=== PATIENT | female | born 1965 | race Caucasian/White ===

== ENCOUNTER 2017-11-19 14:45 | Inpatient (IN) ==
[2017-11-20] MEDS ORDERED: Dextrose 50% in Water 50 ML Vial IV.PUSH PRN (04:30)
[2017-11-20] MEDS ORDERED: Vancomycin Consult Pharmacy 1 EACH OTHER SCH (05:00)
[2017-11-20] MEDS: Piperacil/Tazo 4.5 GM Premix 4.5 GM/100 ML BAG IV.SIG SCH ×3 (05:14→17:12)
[2017-11-20 06:35] LABS: Baso % (Auto) 0.4 % (0.0-2.0); Eos # (Auto) 0.4 th/mm3 (0.0-0.4); Eos % (Auto) 3.4 % (0.0-4.0); Hemoglobin 11.6 gm/dL (11.6-15.3); Lymph # (Auto) 0.7 th/mm3 (1.0-4.8); Lymph % (Auto) 5.6 % (9.0-44.0); Mean Corpuscular Hemoglobin 31.3 pg (27.0-34.0); Mean Corpuscular Volume 89.4 fL (80.0-100.0); Mean Platelet Volume 7.6 fL (7.0-11.0); Mono # (Auto) 0.7 th/mm3 (0.0-0.9); Mono % (Auto) 5.7 % (0.0-8.0); Neut # (Auto) 10.4 th/mm3 (1.8-7.7); Neut % (Auto) 84.9 % (16.0-70.0); Platelet Count 311 th/mm3 (150-450); Red Blood Count 3.69 mil/mm3 (4.00-5.30); Red Cell Distribution Width 11.3 % (11.6-17.2); White Blood Count 12.2 th/mm3 (4.0-11.0)
[2017-11-20 06:41] LABS: Chloride 97 meq/L (98-107); Sodium 133 meq/L (136-145)
[2017-11-20 06:43] LABS: Calcium 8.6 mg/dL (8.5-10.1)
[2017-11-20 06:44] LABS: Anion Gap 11 meq/L (5-15); Blood Urea Nitrogen 10 mg/dL (7-18); Glucose,Random 253 mg/dL (74-106)
[2017-11-20 06:47] LABS: Glomerular Filtration Rate Greater Than 89 mL/min (>89)
[2017-11-20] MEDS ORDERED: Vancomycin Inj 1 GM/200 ML PIGGYBACK IV.SIG ONE (07:00)
[2017-11-20] MEDS: Insulin NovoLOG Aspart Correctional Sugar Inj SQ SCH ×4 (08:10→21:09)
--- NOTE | 2017-11-20 11:37 | P.HP ---
History of Present Illness Primary Care Physician: UNKNOWN History of Present Illness: 52-year-old female with known history of hypertension, hyperlipidemia, diabetes who recently underwent same-day surgery for cholecystectomy at [facility] on November 12, 2016. Ever since discharge the patient states that he has been experiencing shortness of breath and difficulty breathing progressively got worse where she could barely walk without getting significantly short of breath. Patient denies any fever, chills. She has had cough which has been nonproductive. Patient denies any significant abdominal pain, nausea, vomiting , chest pain, diarrhea, constipation, dark colored stools. Patient had workup done emergency department and found to have criteria for sepsis with leukocytosis, tachycardia, CT indicating right lower lung consolidations. - Diagnosis (1) Sepsis (2) Postoperative pneumonia (3) Diabetes (4) Hypertension Inpatient Certification: I certify that the inpatient services were ordered in accordance with Medicare regulations governing the order. This includes certification that hospital inpatient services are reasonable and necessary and in the case of services not specified as inpatient-only under 42 CFR 419.22(n), that they are appropriately provided as inpatient services in accordance to with the 2-midnight benchmark under 43 CFR 412.3(e) Estimated Total Length of Stay (Days): 2 Plans for Post Hospital Care: Home Review of Systems Respiratory: Reports shortness of breath, Reports shortness of breath with activity PMFSH - History History Provided By: Patient - Medical History Medical History: Medical History (Last Updated 11/20/17 @ 11:07 by FRANCISCA Wells) Hyperlipemia Diabetes Hypertension - Surgical History Surgical History: Surgical History (Last Reviewed 11/20/17 @ 11:30 by FRANCISCA Wells) Hx of breast augmentation Hx of cholecystectomy - Family History Family History: Family History (Last Updated 11/20/17 @ 11:09 by FRANCISCA Wells) Mother Family history of diabetes mellitus Family history of hypertension Aunt Family history of diabetes mellitus Brother Family history of diabetes mellitus Family history of hypertension - Tobacco History Second Hand Smoke Exposure: No Tobacco Use In Past 30 Days: No Smoking Status: Former smoker Tobacco Type: Cigarettes - Alcohol History How Often Do You Have a Drink Containing Alcohol: Never - Substance Use History Substance History: No History of Abuse Medications and Allergies Active Medications: Active Medications Dextrose (D50w Vial) 50 ml IV.PUSH UNSCH PRN PRN Reason: PER HYPOGLYCEMIA PROTOCOL Glucagon (Glucagon Inj) 1 mg OTHER PRN PRN PRN Reason: for Hypoglycemia Protocol Pharmacy Profile Note (Vancomycin Consult Pharmacy) 0 mls @ 0 mls/hr OTHER UNSCH CLAUDINE Piperacillin/Tazobactam/Dextrose (Zosyn 4.5 Gm Premix) 4.5 gm in 100 mls @ 200 mls/hr IV.SIG Q6H CLAUDINE Last Admin: 11/20/17 10:45 Dose: 100 mls/hr Vancomycin HCl 1,250 mg/ (Sodium Chloride) 262.5 mls @ 250 mls/hr IV.SIG Q8H CLAUDINE Insulin Aspart (Novolog Insulin Suppl Scale Inj) 0 unit SQ ACHS CLAUDINE; Protocol Last Admin: 11/20/17 08:10 Dose: 5 unit Levofloxacin (Levaquin) 750 mg PO DAILY [facility] Miscellaneous Information ([facility] Ordered Lab Info) 1 each OTHER ONCE ONE Stop: 11/21/17 13:46 Allergies Allergy/AdvReac Type Severity Reaction Status Date / Time No Known Allergies Allergy Verified 11/19/17 15:12 Home Medications Medication Instructions Recorded Confirmed Type lisinopril 10 mg PO DAILY 11/19/17 11/19/17 History metformin 500 mg PO BID 11/19/17 11/19/17 History Exam Vital signs: Vital Signs 11/20/17 05:34 11/20/17 08:00 Temperature 97.8 F 98.5 F Pulse Rate 102 H 99 H Respiratory Rate 20 17 Blood Pressure 130/78 127/79 Pulse Oximetry 96 94 L Intake & Output 11/19/17 11/20/17 11/20/17 18:59 06:59 18:59 Intake Total 580 / 580 Balance 580 / 580 Weight 81.3 kg Intake: IV 100 / 100 Zosyn 4.5 GM Premix 4.5 gm In 100 / 100 100 ml @ 200 mls/hr IV.SIG Q6H CLAUDINE Rx#:[id number] Oral 480 / 480 Other: # Voids 1 Narrative: GENERAL: Well-developed, well-nourished, in no acute distress. alert and orientated HEENT: Head is normocephalic without any lesions or masses noted. Facial features are symmetric. Eyes: Pupils equal round reactive to light. Extraocular muscles are intact. Conjunctivae were clear. Oropharyngeal: Pharynx without any erythema edema. Tongue is midline without deviation. Buccal mucosa is moist without any masses or lesions NECK: Supple without any masses. Trachea midline no deviation. No JVD, no bruits are appreciated CARDIAC: Regular rhythm, regular rate. S1/S2 are heard. No murmurs gallops or rubs. LUNGS: Clear to auscultation bilaterally. No wheeze, rhonchi or rales. No use of accessory muscles on inspiration or expiration. ABDOMEN: Soft, nontender. Nondistended. Bowel sounds heard in all 4 quadrants. No organomegaly or masses. Negative rebound, negative guarding EXTREMITIES: No edema, pulses are equal bilaterally. No cyanosis or clubbing NEUROLOGY: Mood and affect appear appropriate. Cranial nerves II through XII grossly intact. Muscle strength 5/5 in upper and lower extremities bilaterally. Deep tendon reflexes are 2+ in upper and lower extremities bilaterally. Results - Labs CBC & Chem 7: 11/20/17 06:25 11/20/17 06:25 Labs: Laboratory Results - last 24 hr 11/20/17 11/20/17 11/20/17 06:25 06:25 07:57 CBC w Diff Auto diff final WBC 12.2 H RBC 3.69 L Hgb 11.6 Hct 33.0 L MCV 89.4 MCH 31.3 MCHC 35.0 RDW 11.3 L Plt Count 311 MPV 7.6 Neut % (Auto) 84.9 H Lymph % (Auto) 5.6 L [place] % (Auto) 5.7 Eos % (Auto) 3.4 Baso % (Auto) 0.4 Neut # (Auto) 10.4 H Lymph # (Auto) 0.7 L [place] # (Auto) 0.7 Eos # (Auto) 0.4 Baso # (Auto) 0.0 WBC Differential . Sodium 133 L Potassium 4.0 Chloride 97 L Carbon Dioxide 25.0 Anion Gap 11 BUN 10 Creatinine 0.47 L Estimated GFR Greater than 89 POC Glucose 257 H Random Glucose 253 H Calcium 8.6 11/20/17 11:22 CBC w Diff WBC RBC Hgb Hct MCV MCH MCHC RDW Plt Count MPV Neut % (Auto) Lymph % (Auto) [place] % (Auto) Eos % (Auto) Baso % (Auto) Neut # (Auto) Lymph # (Auto) [place] # (Auto) Eos # (Auto) Baso # (Auto) WBC Differential Sodium Potassium Chloride Carbon Dioxide Anion Gap BUN Creatinine Estimated GFR POC Glucose 248 H Random Glucose Calcium Caprini VTE Risk Assessment Caprini VTE Risk Assessment: Moderate/High Risk (score >= 2) Caprini Risk Assessment Model: Point Value = 1 Point Value = 2 Point Value = 3 Point Value = 5 Age 41-60 Minor surgery BMI > 25 kg/m2 Swollen legs Varicose veins or History of unexplained or recurrent spontaneous Oral contraceptives or hormone replacement Sepsis (< 1 month) Serious lung disease, including pneumonia (< 1 month) Abnormal pulmonary function Acute myocardial infarction Congestive heart failure (< 1 month) History of inflammatory bowel disease Medical patient at bed rest Age 61-74 Arthroscopic surgery Major open surgery (> 45 min) Laparoscopic surgery (> 45 min) Malignancy Confined to bed (> 72 hours) Immobilizing plaster cast Central venous access Age >= 75 History of VTE Family history of VTE Factor V Leiden Prothrombin [id number] Lupus anticoagulant Anticardiolipin antibodies Elevated serum homocysteine Heparin-induced thrombocytopenia Other congenital or acquired thrombophilia Stroke (< 1 month) Elective arthroplasty Hip, pelvis, or leg fracture Acute spinal cord injury (< 1 month) Prophylaxis Regimen: Total Risk Factor Score Risk Level Prophylaxis Regimen 0-1 Low Early ambulation 2 Moderate Order ONE of the following: *Sequential Compression Device (SCD) *Heparin 5000 units SQ BID 3-4 Higher Order ONE of the following medications: *Heparin 5000 units SQ TID *Enoxaparin/Lovenox 40 mg SQ daily (WT < 150 kg, CrCl > 30 mL/min) *Enoxaparin/Lovenox 30 mg SQ daily (WT < 150 kg, CrCl > 10-29 mL/min) *Enoxaparin/Lovenox 30 mg SQ BID (WT < 150 kg, CrCl > 30 mL/min) AND/OR *Sequential Compression Device (SCD) 5 or more Highest Order ONE of the following medications: *Heparin 5000 units SQ TID (Preferred with Epidurals) *Enoxaparin/Lovenox 40 mg SQ daily (WT < 150 kg, CrCl > 30 mL/min) *Enoxaparin/Lovenox 30 mg SQ daily (WT < 150 kg, CrCl > 10-29 mL/min) *Enoxaparin/Lovenox 30 mg SQ BID (WT < 150 kg, CrCl > 30 mL/min) AND *Sequential Compression Device (SCD) Assessment and Plan - Assessment (1) Sepsis Code(s): A41.9 - Sepsis, unspecified organism Status: Acute Plan: -Patient met criteria on admission with leukocytosis, sinus tachycardia, right lower lung consolidation by CT -Patient has been started on empirical antibiotics include vancomycin, Zosyn, Levaquin -Blood cultures are pending -Obtain sputum culture -Continue to follow CBC, WBC has already improved (2) Postoperative pneumonia Code(s): J95.89 - Other postprocedural complications and disorders of respiratory system, not elsewhere classified; J18.9 - Pneumonia, unspecified organism Status: Acute Plan: -Patient is being treated with community-acquired pneumonia antibiotics as above -CT scan does indicate significant atelectasis in bilateral lower lung colon, likely secondary to postoperative hypoventilation, possibly secondary to pain -Wean off O2 to maintain O2 sats greater than 92% -Emphasized the need for incentive spirometry -Duo nebs as needed (3) Diabetes Code(s): E11.9 - Type 2 diabetes mellitus without complications Status: Chronic Plan: -Accu-Cheks with sliding scale insulin (4) Hypertension Code(s): I10 - Essential (primary) hypertension Status: Chronic Plan: -Home medications have been continued - Plan DVT prevention -Sequential compression devices
[2017-11-20] MEDS: Vancomycin Inj 1,250 MG in Sodium Chlor 0.9% Inj 250 ML IV.SIG SCH (14:15)
[2017-11-20] MEDS: levoFLOXacin 750 MG Tablet PO SCH (15:52)
[2017-11-21] MEDS: Vancomycin Inj 1,250 MG in Sodium Chlor 0.9% Inj 250 ML IV.SIG SCH ×3 (00:28→17:37)
[2017-11-21] MEDS: Piperacil/Tazo 4.5 GM Premix 4.5 GM/100 ML BAG IV.SIG SCH ×5 (00:28→23:08)
[2017-11-21 07:42] LABS: Baso # (Auto) 0.1 th/mm3 (0.0-0.2); Baso % (Auto) 0.7 % (0.0-2.0); Eos # (Auto) 0.1 th/mm3 (0.0-0.4); Eos % (Auto) 0.8 % (0.0-4.0); Hematocrit 36.9 % (35.0-46.0); Hemoglobin 12.5 gm/dL (11.6-15.3); Lymph # (Auto) 0.4 th/mm3 (1.0-4.8); Lymph % (Auto) 2.6 % (9.0-44.0); Mean Corpuscular HGB Conc 33.8 % (32.0-36.0); Mean Corpuscular Hemoglobin 31.1 pg (27.0-34.0); Mean Corpuscular Volume 91.8 fL (80.0-100.0); Mean Platelet Volume 8.1 fL (7.0-11.0); Mono # (Auto) 0.6 th/mm3 (0.0-0.9); Mono % (Auto) 4.3 % (0.0-8.0); Neut # (Auto) 13.7 th/mm3 (1.8-7.7); Neut % (Auto) 91.6 % (16.0-70.0); Platelet Count 396 th/mm3 (150-450); Red Blood Count 4.02 mil/mm3 (4.00-5.30); Red Cell Distribution Width 11.2 % (11.6-17.2); White Blood Count 14.9 th/mm3 (4.0-11.0)
[2017-11-21 07:59] LABS: ABG Base Excess -4.7 mmol/L (-2-2); ABG PCO2 31 mmHg (38-42); ABG PO2 54 mmHg (61-120)
--- NOTE | 2017-11-21 08:05 | XR ---
EXAM DATE: 11/21/2017 7:56 AM EDT AGE/SEX: 52 years / Female INDICATIONS: Extreme shortness of breath. CLINICAL DATA: This is the patient's initial encounter. Patient reports that signs and symptoms have been present for 1 day and indicates a pain score of 0/10. MEDICAL/SURGICAL HISTORY: Diabetes mellitus type II. Hypercholesterolemia. Hypertension. For vira smoker. Cholecystectomy. Breast augmentation. COMPARISON: [facility], [facility] PULMONARY W CONTRAST W 3D, 11/19/2017. . FINDINGS: A single AP view of the chest demonstrates almost complete opacification right hemithorax. Minimal le ft basilar density. Slight shift of the mediastinum to the left. Only small portion of the right uppe r lobe is aerated. The cardiomediastinal contours are unremarkable. Osseous structures are intact. CONCLUSION: 1. Almost complete opacification right hemithorax likely large pleural effusion/atelectasis. 2. Minimal density left lung base. Electronically signed by: Reza Lopez MD 11/21/2017 8:04 AM EDT
[2017-11-21 08:11] LABS: Chloride 94 meq/L (98-107); Potassium 3.6 meq/L (3.5-5.1); Sodium 132 meq/L (136-145)
[2017-11-21 08:17] LABS: Calcium 8.7 mg/dL (8.5-10.1)
[2017-11-21 08:18] LABS: Albumin 2.2 g/dL (3.4-5.0); Anion Gap 13 meq/L (5-15); Blood Urea Nitrogen 13 mg/dL (7-18); Carbon Dioxide 25.5 meq/L (21.0-32.0); Glucose,Random 275 mg/dL (74-106)
[2017-11-21 08:21] LABS: Alanine Aminotransferase 25 U/L (10-53); Aspartate Aminotransferase 19 U/L (15-37); Glomerular Filtration Rate 86 mL/min (>89)
[2017-11-21 08:22] LABS: Alkaline Phosphatase 199 U/L (45-117); Total Protein 7.2 g/dL (6.4-8.2)
[2017-11-21] MEDS ORDERED: Bisacodyl 10 MG Supp RECTAL PRN (08:41)
--- NOTE | 2017-11-21 09:47 | CT ---
EXAM DATE: 11/21/2017 9:42 AM EDT AGE/SEX: 52 years / Female INDICATIONS: Status of pleural effusion. Short of breath. Patient breathes better in upright positio n. CLINICAL DATA: This is the patient's subsequent encounter. Patient reports that signs and symptoms h ave been present for 3 days and indicates a pain score of 0/10. MEDICAL/SURGICAL HISTORY: Hypertension. Diabetes. Cholecystectomy. RADIATION DOSE: 19.13 CTDI (mGy) COMPARISON: [facility], [facility]A PULMONARY W CONTRAST W 3D, 11/19/2017. . TECHNIQUE: Multiple contiguous axial images were obtained through the chest without contrast. Image s were obtained in suspended respiration using multiple row detector helical technique. Using automa raffy exposure control and adjustment of the mA and/or kV according to patient size, radiation dose was kept as low as reasonably achievable to obtain optimal diagnostic quality images. DICOM format imag e data is available electronically for review and comparison. FINDINGS: Lungs: Large right pleural effusion with consolidative changes of the right middle lobe and right lo wer lobe. Small left pleural effusion and left basilar consolidation Mediastinum: There is good visualization of the great vessels of the middle mediastinum. No evidenc e of mediastinal or hilar adenopathy/mass. Pleurae: No evidence of focal thickening or pleural effusion. Axillae: Unremarkable. Bony Structures: Unremarkable. Miscellaneous: The examination was extended to include the upper abdomen, and both adrenal glands ar e normal in size and configuration. Minimal ascites adjacent to the liver. CONCLUSION: 1. Large right and small left pleural effusion. 2. Extensive consolidation throughout the right lung likely atelectasis with similar changes in the left lung base. Electronically signed by: Reza Lopez MD 11/21/2017 9:46 AM EDT
[2017-11-21] MEDS: Insulin NovoLOG Aspart Correctional Sugar Inj SQ SCH ×4 (10:01→21:42)
[2017-11-21] MEDS: levoFLOXacin 750 MG Tablet PO SCH (10:01)
[2017-11-21] MEDS: Senna/Docusate Sodium 8.6/50 MG Tablet PO SCH ×2 (10:01→21:41)
[2017-11-21] MEDS: Famotidine 20 MG Tablet PO SCH ×2 (10:02→21:41)
[2017-11-21] MEDS ORDERED: hydrALAZINE HCl Inj 20 MG/ML Vial IV.PUSH PRN (10:36)
[2017-11-21] MEDS: Lisinopril 10 MG Tablet PO SCH (11:14)
--- NOTE | 2017-11-21 12:52 | P.CONCC ---
History of Present Illness Consult date: 11/21/17 Requesting Physician: Yaritza Paiz Reason for Consult: Critical care management Primary Care Provider: UNKNOWN Chief Complaint: Shortness of breath and dyspnea History of Present Illness: 52-year-old female with known history of hypertension, hyperlipidemia, diabetes who recently underwent same-day surgery for cholecystectomy at [facility] on November 12, 2016. Number since then patient has been experiencing progressively worsening shortness of breath where it was so severe that she went to the [place] ER. Patient was found to have sepsis by criteria, CT scan did show right lower lung consolidations, effusions, atelectasis bilaterally. Patient was admitted to the medical service and was placed on antibiotics with vancomycin and Zosyn for postoperative pneumonia. There is also indicated that patient was started on incentive spirometry due to postsurgical atelectasis. Patient was doing well and then when she woke up this morning she had severe shortness of breath where he required her to have increased O2 supplementation with 2 L nasal cannula repeat x-ray was performed which did indicate complete whiteout of the right lung. Stat CT was performed which does indicate very large pleural effusion. Patient was moved to the ICU and placed on BiPAP for respiratory support. Because of the above reasons critical care was consulted for medical management of the patient in the ICU. Review of Systems All other systems reviewed negative except as stated in HPI Respiratory: Reports pain on inspiration, Reports pain with cough, Reports shortness of breath, Reports shortness of breath with activity PMFSH - History History Provided By: Patient - Medical History Medical History: Medical History (Last Reviewed 11/21/17 @ 12:47 by FRANCISCA Wells) Hyperlipemia Diabetes Hypertension - Surgical History Surgical History: Surgical History (Last Reviewed 11/21/17 @ 12:47 by FRANCISCA Wells) Hx of breast augmentation Hx of cholecystectomy - Family History Family History: Family History (Last Reviewed 11/21/17 @ 12:47 by FRANCISCA Wells) Mother Family history of diabetes mellitus Family history of hypertension Aunt Family history of diabetes mellitus Brother Family history of diabetes mellitus Family history of hypertension - Tobacco History Second Hand Smoke Exposure: No Tobacco Use In Past 30 Days: No Smoking Status: Former smoker Tobacco Type: Cigarettes - Alcohol History How Often Do You Have a Drink Containing Alcohol: Never - Substance Use History Substance History: No History of Abuse Medications and Allergies Allergies Allergy/AdvReac Type Severity Reaction Status Date / Time No Known Allergies Allergy Verified 11/19/17 15:12 Home Medications Medication Instructions Recorded Confirmed Type lisinopril 10 mg PO DAILY 11/19/17 11/21/17 History metformin 500 mg PO BID 11/19/17 11/21/17 History Active Medications: Active Medications Al Hydroxide/Mg Hydroxide (Milk Of Magnalisia Liq) 30 ml PO Q12H PRN PRN Reason: Mild Constipation Albuterol (Duoneb Neb (Prn)) 1 ampul NEB Q2HR NEB PRN PRN Reason: SHORTNESS OF BREATH/WHEEZING Last Admin: 11/21/17 08:20 Dose: 1 ampul Albuterol (Duoneb Neb (Pérez)) 1 ampul NEB Q6HR WHILE AWAKE NEB PÉREZ Last Admin: 11/21/17 08:18 Dose: 1 ampul Bisacodyl (Dulcolax Supp) 10 mg RECTAL DAILY PRN PRN Reason: SEVERE CONSITIPATION Chlorhexidine Gluconate (Chlorhexidine 2% Cloth) 3 pack TOPICAL DAILY@0400 PÉREZ Stop: 11/27/17 03:59 Chlorhexidine Gluconate (Chlorhexidine 2% Cloth) 3 pack TOPICAL DAILY@0400 PRN PRN Reason: Extra cloth needed Stop: 11/27/17 03:59 Dextrose (D50w Vial) 50 ml IV.PUSH UNSCH PRN PRN Reason: PER HYPOGLYCEMIA PROTOCOL Famotidine (Pepcid) 20 mg PO BID PÉREZ Last Admin: 11/21/17 10:02 Dose: 20 mg Glucagon (Glucagon Inj) 1 mg OTHER PRN PRN PRN Reason: for Hypoglycemia Protocol Hydralazine HCl (Apresoline Inj) 20 mg IV.PUSH Q6HR PRN PRN Reason: SBP>160, DBP>90 Last Admin: 11/21/17 12:10 Dose: 20 mg Pharmacy Profile Note (Vancomycin Consult Pharmacy) 0 mls @ 0 mls/hr OTHER UNSCH PÉREZ Piperacillin/Tazobactam/Dextrose (Zosyn 4.5 Gm Premix) 4.5 gm in 100 mls @ 200 mls/hr IV.SIG Q6H PÉREZ Last Infusion: 11/21/17 12:09 Dose: Infused Vancomycin HCl 1,250 mg/ (Sodium Chloride) 262.5 mls @ 250 mls/hr IV.SIG Q8H PÉREZ Last Infusion: 11/21/17 06:47 Dose: Infused Insulin Aspart (Novolog Insulin Suppl Scale Inj) 0 unit SQ ACHS [facility]; Protocol Last Admin: 11/21/17 12:15 Dose: 7 unit Lactulose (Lactulose Liq) 30 ml PO DAILY PRN PRN Reason: SEVERE CONSITIPATION Levofloxacin (Levaquin) 750 mg PO DAILY [facility] Last Admin: 11/21/17 10:01 Dose: 750 mg Lisinopril (Prinivil) 10 mg PO DAILY [facility] Last Admin: 11/21/17 11:14 Dose: 10 mg Lorazepam (Ativan Inj) 1 mg IV.PUSH Q4H PRN PRN Reason: ANXIETY AND/OR AGITATION Last Admin: 11/21/17 08:54 Dose: 1 mg Miscellaneous Information ([facility] Ordered Lab Info) 1 each OTHER ONCE ONE Stop: 11/21/17 13:46 Senna/Docusate Sodium (Lalitha-Colace) 1 tab PO BID [facility] Last Admin: 11/21/17 10:01 Dose: 1 tab Sennosides (Senokot) 17.2 mg PO Q12H PRN PRN Reason: Moderate Constipation Physical Exam Vital signs: Vital Signs 11/20/17 15:18 11/20/17 16:00 11/20/17 19:50 Temperature 97.2 F L Pulse Rate 100 H 98 H 109 H Respiratory Rate 30 H 17 16 Blood Pressure 125/77 Pulse Oximetry 94 L 95 11/20/17 20:00 11/21/17 00:00 11/21/17 04:00 Temperature 97.9 F 98.5 F Pulse Rate 100 H 94 H Respiratory Rate 14 Blood Pressure 114/75 136/84 Pulse Oximetry 94 L 92 L 94 L 11/21/17 06:20 11/21/17 07:40 11/21/17 08:09 Temperature 96.2 F L 98.6 F Pulse Rate 104 H 104 H 110 H Respiratory Rate 24 20 Blood Pressure 156/59 H 169/93 H Pulse Oximetry 88 L 92 L 92 L 11/21/17 08:22 11/21/17 09:00 11/21/17 10:01 Temperature Pulse Rate 117 H 120 H 122 H Respiratory Rate 40 H 49 H 51 H Blood Pressure 174/94 H 165/100 H Pulse Oximetry 95 95 94 L 11/21/17 11:01 11/21/17 11:05 11/21/17 12:01 Temperature 98.8 F Pulse Rate 114 H 114 H Respiratory Rate 31 H 35 H Blood Pressure 166/101 H 156/99 H Pulse Oximetry 94 L 95 95 Intake & Output 11/20/17 11/21/17 11/21/17 18:59 06:59 18:59 Intake Total 820 / 820 3650.0 / 3650.0 820 / 820 Output Total 300 / 300 1999 / 1999 Balance 820 / 820 3350.0 / 3350.0 -1180 / -1180 Weight 81.3 kg Intake: IV 100 / 100 3650.0 / 3650.0 100 / 100 Zosyn 4.5 GM Premix 4.5 gm In 100 / 100 300 / 300 100 / 100 100 ml @ 200 mls/hr IV.SIG Q6H PÉREZ Rx#:[id number] Vancomycin Inj 1,250 MG In NS 3150.0 / 3150.0 Inj 250 ML @ 250 mls/hr IV.SIG Q8H PÉREZ Rx#:[id number] Oral 720 / 720 720 / 720 Output: Urine 300 / 300 1999 Other: # Voids 6 2 Date of Last Bowel Movement 11/19/17 # Bowel Movements 0 Narrative: GENERAL: Well-developed, well-nourished, in no acute distress. alert and orientated HEENT: Head is normocephalic without any lesions or masses noted. Facial features are symmetric. Eyes: Pupils equal round reactive to light. Extraocular muscles are intact. Conjunctivae were clear. Oropharyngeal: Pharynx without any erythema edema. Tongue is midline without deviation. Buccal mucosa is moist without any masses or lesions NECK: Supple without any masses. Trachea midline no deviation. No JVD, no bruits are appreciated CARDIAC: Regular rhythm, regular rate. S1/S2 are heard. No murmurs gallops or rubs. LUNGS: Patient with absent lung sounds noted on the right side. Patient is tachypneic with shallow breathing. No wheeze, rhonchi or rales. No use of accessory muscles on inspiration or expiration. ABDOMEN: Soft, nontender. Nondistended. Bowel sounds heard in all 4 quadrants. No organomegaly or masses. Negative rebound, negative guarding EXTREMITIES: No edema, pulses are equal bilaterally. No cyanosis or clubbing NEUROLOGY: Mood and affect appear appropriate. Cranial nerves II through XII grossly intact. Muscle strength 5/5 in upper and lower extremities bilaterally. Deep tendon reflexes are 2+ in upper and lower extremities bilaterally. Septic Shock Reassessment Septic shock perfusion: reassessment completed Assessment and Plan - Assessment and Plan Plan: NEUROLOGY Anxiety -Ativan as needed for anxiety agitation -Continue monitor neurological status PULMONOLOGY Acute hypoxic respiratory failure Large right-sided pleural effusion, postoperative Postoperative pneumonia Postoperative atelectasis -Continue O2 sat mentation maintain O2 sats greater than 92% -ABG indicated pH 7.41, PCO2 31, PO2 54, bicarb 15.7, O2 saturation 86% -Patient started on BiPAP 15/5/50 percent, wean FiO2 to maintain O2 sats greater than 92% -Stat CT was performed of the chest which does show a very large right pleural effusion -Stat ultrasound-guided thoracentesis has been requested, awaiting procedure, requesting pigtail catheter to be placed -Patient respiratory status continues to worsen prior to thoracentesis, pt may need to be intubated -Send pleural fluid for analysis -Duo nebs with easy Pap have been requested -Incentive spirometry -Tractor Mechanic consulted for continued management CARDIOLOGY Hypertension -Home medications have been continued -Continue monitor blood pressure to keep map greater than 65 -Echocardiogram has been requested GASTROENTEROLOGY Hyperbilirubinemia -Diabetic diet -Pepcid for GI protection -Patient still with elevated bilirubin status post cholecystectomy -Continue monitor liver enzymes RENAL -Continue monitor renal function -Monitor electrolytes and replete as needed INFECTIOUS DISEASE Postoperative pneumonia Leukocytosis Lactic acidosis -Patient is on vancomycin and Zosyn -Blood cultures are negative for 2 days -Awaiting sputum culture -Send pleural fluid for cultures -Urinalysis did not indicate any signs of infection HEMATOLOGY -Continue monitor hemoglobin and transfuse if hemoglobin below 8.0 ENDOCRINOLOGY Diabetes -Diabetic diet -Accu-Cheks with sliding scale insulin PROPHYLAXIS DVT prevention: Sequential compression devices GI protection: Patient is on Pepcid twice daily LINES CODE STATUS Full code Critical care management 60 minutes excluding procedures Discussed Condition With: Addendum: Patient seen and examined. Discussed findings, assessment and plan with [place]. Agree with above note. Patient breathing better following thoracentesis and drainage of approx 1000cc pleural fluid. Pulm eval noted. Will continue to follow.
[2017-11-21] MEDS ORDERED: Pharmacy Ordered Lab Info OTHER ONE (13:45)
[2017-11-21 13:50] LABS: Activated Partial Thrombo Time 24.1 sec (24.3-30.1); INR 1.2 Ratio
--- NOTE | 2017-11-21 15:24 | MB ---
cc: Rebeca Stack MD DATE: 11/21/2017 HISTORY OF PRESENT ILLNESS: Ms. Gandhi is a 52-year-old white female with a history of diabetes, not insulin-dependent, who underwent a cholecystectomy about a week ago. After discharge home, she became progressively more short of breath, presented to the ER in [place] and was transferred here because her chest x-ray revealed near total whiteout of the right lung. On presentation here, she had a CT scan which revealed a very large pleural effusion in the right as well as some perihepatic ascitic fluid. She has had a chest tube placed in the right hemithorax with a serosanguineous fluid drained, about 2 liters total. She is feeling much better. She was a former smoker of 1/2 to 1 pack per day for about 30 years. She quit smoking 6 months ago. Apparently drank wine heavily for many years as well, but has had no alcohol in the last 6 months. She has had shortness of breath, but no pain. No purulent sputum or hemoptysis. No swelling in her legs. PAST MEDICAL HISTORY: Hypertension, diabetes. No prior history of pneumonia or known lung disease. Denies ever having had pneumonia. No history of thromboembolic disease. ALLERGIES: NONE. MEDICATIONS PRIOR TO ADMISSION: Metformin and lisinopril. MEDICATIONS HERE IN THE HOSPITAL: Reviewed and recorded. She has been placed on Zosyn and vancomycin for possible postoperative pneumonia. SOCIAL HISTORY: She is and living with her . Her mother lives with them as well. Smoking and alcohol as noted above. No illicit drug use. They do have a dog at home. REVIEW OF SYSTEMS: She has had no nausea or vomiting. She has had loose bowel movements since the surgery. Denies fever or sweats. PHYSICAL EXAMINATION: GENERAL: She is awake, alert, comfortable at rest. VITAL SIGNS: Temperature is 98.8, pulse is 120 and regular, respirations are 22, blood pressure is 150/80, O2 saturation is 95% on a Ventimask. HEENT: Sclerae are anicteric. NECK: Neck veins are flat. CHEST: Reveals some scattered congestion in the right. No wheezes. HEART: Regular rhythm. No harsh murmur. ABDOMEN: Soft. Wounds appear to be healing nicely. EXTREMITIES: No peripheral edema. No calf tenderness. IMAGING STUDIES: Chest x-ray after chest tube drainage still shows an elevation of the right hemidiaphragm. Question is whether or not she has any residual subpulmonic effusion. DISCUSSION: Ms. Gandhi presents status post cholecystectomy with a large right pleural effusion. It looks serosanguineous. Those results are pending. There may be pneumonia underlying this, but I am concerned about that elevation in the right hemidiaphragm despite pleural fluid drainage and I suggest we repeat the scan of her chest and abdomen with particular interest in that right upper quadrant. Continue antibiotics, nebulized aerosol treatments in light of the smoking history. Further diagnostic and/or therapeutic intervention will depend on her ongoing clinical course. R. MD SARTHAK Gonzalez/CASTRO , 02:54 PM , 03:22 PM
[2017-11-21 16:51] LABS: Lymphocytes,Pleural Fluid 8 %; Mesothelial,Pleural Fluid 2 %; Neutrophils,Pleural Fluid 90 %; RBC,Pleural Fluid 5260 /mm3 (0-0)
[2017-11-21] MEDS: Sod Chloride 0.9% Inj 1,000 ML IV.CONT SCH (17:37)
--- NOTE | 2017-11-21 19:40 | ECHRPT ---
Indication: Shortness of Breath CONCLUSIONS Trace mitral valve regurgitation. There is mild tricuspid valve regurgitation. The estimated pulmonary arterial pressure is 45 mmHg. The left ventricular systolic function is hyperdynamic with an estimated ejection fraction in the ra nge of 65- 70%. Normal left ventricular size. Wall thickness is measured at the upper limits of normal. No regional wall motion abnormalities are present. BP: / HR: 111 Rhythm: MEASUREMENTS (Male / Female) Normal Values Technical Quality:Fair 2D ECHO LV Diastolic Diameter PLAX 3.3 cm 4.2 - 5.9 / 3.9 - 5.3 cm LV Systolic Diameter PLAX 1.9 cm IVS Diastolic Thickness 1.2 cm 0.6 - 1.0 / 0.6 - 0.9 cm LVPW Diastolic Thickness 1.0 cm 0.6 - 1.0 / 0.6 - 0.9 cm LV Relative Wall Thickness 0.7 RV Internal Dim ED PLAX 2.6 cm LVOT Diameter 1.9 cm LA Systolic Diameter LX 3.1 cm 3.0 - 4.0 / 2.7 - 3.8 cm M-MODE Aortic Root Diameter MM 2.7 cm LA Systolic Diameter MM 3.5 cm LA Ao Ratio MM 1.3 AV Cusp Separation MM 2.0 cm DOPPLER AV Peak Velocity 184.0 cm/s AV Peak Gradient 13.5 mmHg LVOT Peak Velocity 118.0 cm/s LVOT Peak Gradient 5.6 mmHg AV Area Cont Eq pk 1.8 cm MV Area PHT 2.9 cm Mitral E Point Velocity 67.6 cm/s Mitral A Point Velocity 98.7 cm/s Mitral E to A Ratio 0.7 LV E' Lateral Velocity 11.5 cm/s Mitral E to LV E' Lateral Ratio 5.9 LV E' Septal Velocity 7.3 cm/s Mitral E to LV E' Septal Ratio 9.2 TR Peak Velocity 330.0 cm/s TR Peak Gradient 43.6 mmHg Right Atrial Pressure 10.0 mmHg Pulmonary Artery Systolic Pressu 53.6 mmHg Right Ventricular Systolic Press 53.6 mmHg FINDINGS LEFT VENTRICLE The left ventricular systolic function is hyperdynamic with an estimated ejection fraction in the ra nge of 65- 70%. Normal left ventricular size. Wall thickness is measured at the upper limits of normal. No regional wall motion abnormalities are present. RIGHT VENTRICLE Normal right ventricular size and systolic function. LEFT ATRIUM The left atrial size is normal. RIGHT ATRIUM The right atrial size is normal. ATRIAL SEPTUM Normal atrial septal thickness without atrial level shunting by limited color doppler interrogation. AORTA The aortic root and proximal ascending aorta are normal in size on limited imaging. MITRAL VALVE Trace mitral valve regurgitation. AORTIC VALVE Trileaflet aortic valve. No aortic valve stenosis or regurgitation. TRICUSPID VALVE Structurally normal tricuspid valve. There is mild tricuspid valve regurgitation. The estimated pulmonary arterial pressure is 45 mmHg. PULMONARY VALVE Trivial pulmonary valve regurgitation. VESSELS The inferior vena cava was not well visualized. PERICARDIUM There is a small pericardial effusion present. A left sided pleural effusion is present. Miguel A Warren MD (Electronically Signed) Final Date:21 November 2017 19:39
[2017-11-22] MEDS: Sod Chloride 0.9% Inj 1,000 ML IV.CONT SCH (03:55)
[2017-11-22] MEDS ORDERED: Chlorhexidine Gluconate 2% 1 Pack (2 Cloths) TOPICAL PRN (04:00)
[2017-11-22] MEDS: Piperacil/Tazo 4.5 GM Premix 4.5 GM/100 ML BAG IV.SIG SCH ×4 (05:13→23:17)
[2017-11-22] MEDS: Chlorhexidine Gluconate 2% 1 Pack (2 Cloths) TOPICAL SCH (05:14)
[2017-11-22] MEDS: Vancomycin Inj 1,250 MG in Sodium Chlor 0.9% Inj 250 ML IV.SIG SCH ×2 (05:55→17:13)
[2017-11-22 07:41] LABS: Baso % (Auto) 0.2 % (0.0-2.0); Eos # (Auto) 0.2 th/mm3 (0.0-0.4); Eos % (Auto) 1.1 % (0.0-4.0); Hematocrit 31.2 % (35.0-46.0); Hemoglobin 11.1 gm/dL (11.6-15.3); Lymph # (Auto) 0.5 th/mm3 (1.0-4.8); Mean Corpuscular HGB Conc 35.7 % (32.0-36.0); Mean Corpuscular Hemoglobin 31.4 pg (27.0-34.0); Mean Corpuscular Volume 87.9 fL (80.0-100.0); Mean Platelet Volume 7.6 fL (7.0-11.0); Mono % (Auto) 7.3 % (0.0-8.0); Neut % (Auto) 87.4 % (16.0-70.0); Platelet Count 341 th/mm3 (150-450); Red Blood Count 3.55 mil/mm3 (4.00-5.30); Red Cell Distribution Width 11.8 % (11.6-17.2); White Blood Count 13.7 th/mm3 (4.0-11.0)
[2017-11-22 08:08] LABS: Chloride 97 meq/L (98-107); Potassium 3.6 meq/L (3.5-5.1); Sodium 133 meq/L (136-145)
[2017-11-22] MEDS: Lisinopril 10 MG Tablet PO SCH (08:09)
[2017-11-22] MEDS: Senna/Docusate Sodium 8.6/50 MG Tablet PO SCH ×2 (08:10→21:25)
[2017-11-22] MEDS: Famotidine 20 MG Tablet PO SCH ×2 (08:10→21:25)
[2017-11-22] MEDS: Insulin NovoLOG Aspart Correctional Sugar Inj SQ SCH ×4 (08:11→21:26)
[2017-11-22 08:13] LABS: Calcium 8.5 mg/dL (8.5-10.1)
[2017-11-22 08:14] LABS: Albumin 1.9 g/dL (3.4-5.0); Anion Gap 11 meq/L (5-15); Blood Urea Nitrogen 15 mg/dL (7-18); Carbon Dioxide 24.7 meq/L (21.0-32.0); Glucose,Random 217 mg/dL (74-106)
[2017-11-22 08:17] LABS: Alanine Aminotransferase 23 U/L (10-53); Aspartate Aminotransferase 14 U/L (15-37); Glomerular Filtration Rate 70 mL/min (>89)
[2017-11-22 08:18] LABS: Total Protein 6.6 g/dL (6.4-8.2)
[2017-11-22 08:20] LABS: Alkaline Phosphatase 181 U/L (45-117)
--- NOTE | 2017-11-22 11:44 | CT ---
EXAM DATE: 11/21/2017 4:40 PM EDT AGE/SEX: 52 years / Female INDICATIONS: Right upper quadrant pain. Recent cholecystectomy. CLINICAL DATA: This is the patient's subsequent encounter. Patient reports that signs and symptoms h ave been present for 2 days and indicates a pain score of 0/10. MEDICAL/SURGICAL HISTORY: Diabetes. Hypertension. Cholecystectomy. RADIATION DOSE: 17.43 CTDI (mGy) ; Combined studies COMPARISON: [facility], CT ABDOMEN & PELVIS W CONTRAST, 11/19/2017. . TECHNIQUE: Multiple contiguous axial images were obtained through the abdomen. Images were obtained using multiple row detector helical technique. Using automated exposure control and adjustment of the mA and/or kV according to patient size, radiation dose was kept as low as reasonably achievable to o btain optimal diagnostic quality images. DICOM format image data is available electronically for rev iew and comparison. FINDINGS: Small-caliber right chest tube is present. There is a small to moderate right effusion and small left effusion with by basilar lung consolidation and atelectasis. There is mild ascites. Previous cholecystectomy. There is some hazy density or edema in the omentum. Stomach is mildly distended with gas and fluid. No pelvic masses. There is pelvic ascites in the bladder is distended. No bowel obstruction or free a ir. CONCLUSION: 1. Placement of right chest tube with decrease in size of right pleural effusion. 2. Mild ascites with mild anasarca and abnormal hazy stranding of the omentum. 3. Mild gastric distention and bladder distention. 4. No bowel obstruction or free air. Electronically signed by: Timi Singleton MD 11/21/2017 4:51 PM EDT
--- NOTE | 2017-11-22 11:45 | XR ---
EXAM DATE: 11/21/2017 1:17 PM EDT AGE/SEX: 52 years / Female INDICATIONS: Post right thoracentesis & drainage catheter placement. CLINICAL DATA: This is the patient's subsequent encounter. Patient reports that signs and symptoms h ave been present for 1 day and indicates a pain score of 0/10. MEDICAL/SURGICAL HISTORY: Hypercholesterolemia. Hypertension. Diabetes mellitus type II. For vira smoker. Cholecystectomy. Breast augmentation. COMPARISON: [facility], CHEST 1V SINGLE AP, 11/21/2017. . FINDINGS: A single AP view of the chest demonstrates elevation right hemidiaphragm. Right-sided drainage cathet er with decrease in right pleural effusion. No pneumothorax. Left lung is over penetrated. Heart midl ine.. The cardiomediastinal contours are unremarkable. Osseous structures are intact. CONCLUSION: Right-sided drainage catheter right pleural space. No pneumothorax. Electronically signed by: Reza Lopez MD 11/21/2017 1:25 PM EDT
--- NOTE | 2017-11-22 11:45 | CT ---
EXAM DATE: 11/21/2017 4:29 PM EDT AGE/SEX: 52 years / Female INDICATIONS: Post thoracentesis. CLINICAL DATA: This is the patient's subsequent encounter. Patient reports that signs and symptoms h ave been present for 2 days and indicates a pain score of 0/10. MEDICAL/SURGICAL HISTORY: Hypertension. Diabetes. Cholecystectomy. RADIATION DOSE: 17.43 CTDI (mGy) ; Combined studies COMPARISON: [facility], CT CHEST W/O CONTRAST, 11/21/2017. . TECHNIQUE: Multiple contiguous axial images were obtained through the chest without contrast. Image s were obtained in suspended respiration using multiple row detector helical technique. Using automa raffy exposure control and adjustment of the mA and/or kV according to patient size, radiation dose was kept as low as reasonably achievable to obtain optimal diagnostic quality images. DICOM format imag e data is available electronically for review and comparison. FINDINGS: Comparison is November 21 exam from earlier today. A small caliber right-sided chest tube is in place with decrease in size of the right pleural effusion. Small to moderate right effusion remains. There is a lso a small left pleural effusion similar to earlier exam. There is by basilar lung consolidation and atelectasis. Right sided atelectasis has improved since thoracentesis. There is no pneumothorax. See abdomen CT for findings below the diaphragm. CONCLUSION: 1. Placement of right chest tube with decrease in size of right pleural effusion compared with exam from earlier today. There is improvement in right lung atelectasis. Bilateral consolidation and small left effusion remain. Electronically signed by: Timi Singleton MD 11/21/2017 4:47 PM EDT
[2017-11-22] MEDS ORDERED: ALPRAZolam 0.25 MG Tablet PO PRN (14:50)
--- NOTE | 2017-11-22 15:07 | P.PNCC ---
Subjective Subjective Remarks/Hospital Course: 52-year-old female with known history of hypertension, hyperlipidemia, diabetes who recently underwent same-day surgery for cholecystectomy at [facility] on November 12, 2016. Number since then patient has been experiencing progressively worsening shortness of breath where it was so severe that she went to the [place] ER. Patient was found to have sepsis by criteria, CT scan did show right lower lung consolidations, effusions, atelectasis bilaterally. Patient was admitted to the medical service and was placed on antibiotics with vancomycin and Zosyn for postoperative pneumonia. There is also indicated that patient was started on incentive spirometry due to postsurgical atelectasis. Patient was doing well and then when she woke up this morning she had severe shortness of breath where he required her to have increased O2 supplementation with 2 L nasal cannula repeat x-ray was performed which did indicate complete whiteout of the right lung. Stat CT was performed which does indicate very large pleural effusion. Patient was moved to the ICU and placed on BiPAP for respiratory support. Because of the above reasons critical care was consulted for medical management of the patient in the ICU. 11/22/17: Patient seen and examined today for follow-up on acute hypoxic respiratory failure, large pleural effusion. Patient resting comfortably on room air today. Patient had documented total of 1 L of fluid output from the right-sided chest pain. There was only 100 mL's overnight. There is been no output during the day today. She is resting comfortably. Denies any new complaints. Vital signs are stable. Patient remains afebrile Objective Vital Signs / I&O: Vital Signs 11/21/17 15:00 11/21/17 16:00 11/21/17 17:02 Temperature 99.6 F Pulse Rate 118 H 116 H 112 H Respiratory Rate 38 H 42 H 38 H Blood Pressure 132/82 123/74 Pulse Oximetry 96 96 96 11/21/17 18:00 11/21/17 18:02 11/21/17 19:00 Temperature Pulse Rate 110 H 110 H 108 H Respiratory Rate 38 H 31 H 27 H Blood Pressure 133/71 112/67 Pulse Oximetry 95 95 95 11/21/17 19:39 11/21/17 19:40 11/21/17 20:00 Temperature 98.9 F Pulse Rate 105 H 108 H Respiratory Rate 18 40 H Blood Pressure 124/71 Pulse Oximetry 97 96 11/21/17 21:00 11/21/17 22:00 11/21/17 23:00 Temperature Pulse Rate 104 H 102 H 100 H Respiratory Rate 27 H 26 H 25 H Blood Pressure 121/69 137/79 123/69 Pulse Oximetry 95 94 L 94 L 11/22/17 00:00 11/22/17 01:00 11/22/17 02:00 Temperature 97.7 F Pulse Rate 98 H 96 H 96 H Respiratory Rate 25 H 24 24 Blood Pressure 117/69 111/70 117/77 Pulse Oximetry 94 L 93 L 93 L 11/22/17 03:00 11/22/17 04:00 11/22/17 05:00 Temperature 97.9 F Pulse Rate 96 H 96 H 94 H Respiratory Rate 34 H 33 H 23 Blood Pressure 113/66 120/69 127/72 Pulse Oximetry 93 L 93 L 93 L 11/22/17 06:00 11/22/17 07:38 11/22/17 14:32 Temperature Pulse Rate 99 H 98 H 104 H Respiratory Rate 21 22 20 Blood Pressure 115/63 Pulse Oximetry 98 95 Intake & Output 11/21/17 11/22/17 11/22/17 18:59 06:59 18:59 Intake Total 1662.5 / 1662.5 1200 / 1200 Output Total 3000 / 3000 Balance -1337.5 / -1337.5 1200 / 1200 Weight 81.5 kg Intake: IV 462.5 / 462.5 1200 / 1200 NS Inj 1,000 ML @ 84 mls/hr IV. 1000 / 1000 CONT .[id number] CLAUDINE Rx#: [id number] Zosyn 4.5 GM Premix 4.5 gm In 200 / 200 200 / 200 100 ml @ 200 mls/hr IV.SIG Q6H CLAUDINE Rx#:[id number] Vancomycin Inj 1,250 MG In NS 262.5 / 262.5 Inj 250 ML @ 250 mls/hr IV.SIG Q8H CLAUDINE Rx#:[id number] Oral 1200 / 1200 Output: Urine 2000 / 2000 Chest Tube Drainage 1000 / 1000 #1 Right Upper Pleural 1000 / 1000 Other: Date of Last Bowel Movement 11/19/17 11/19/17 Result Diagrams: 11/22/17 07:25 11/22/17 07:25 Imaging: Abdomen/Pelvis CT 11/21/17 00:00 CONCLUSION: 1. Placement of right chest tube with decrease in size of right pleural effusion. 2. Mild ascites with mild anasarca and abnormal hazy stranding of the omentum. 3. Mild gastric distention and bladder distention. 4. No bowel obstruction or free air. Chest CT 11/21/17 09:09 CONCLUSION: 1. Large right and small left pleural effusion. 2. Extensive consolidation throughout the right lung likely atelectasis with similar changes in the left lung base. Chest X-Ray 11/21/17 13:02 CONCLUSION: Right-sided drainage catheter right pleural space. No pneumothorax. Objective Remarks: GENERAL: Well-developed, well-nourished, in no acute distress. alert and orientated HEENT: Head is normocephalic without any lesions or masses noted. Facial features are symmetric. Eyes: Extraocular muscles are intact. Conjunctivae were clear. NECK: Supple without any masses. Trachea midline no deviation. No JVD, CARDIAC: Regular rhythm, regular rate. S1/S2 are heard. No murmurs gallops or rubs. LUNGS: Can actually hear air movement in the right upper lung at this time. Chest tube still in place. No documented or observed output since this morning from the chest tube.. No wheeze, rhonchi or rales. No use of accessory muscles on inspiration or expiration. ABDOMEN: Soft, nontender. Nondistended. Bowel sounds heard in all 4 quadrants. No organomegaly or masses. Negative rebound, negative guarding EXTREMITIES: No edema, pulses are equal bilaterally. No cyanosis or clubbing NEUROLOGY: Mood and affect appear appropriate. Cranial nerves II through XII grossly intact. Moving all extremities, speech is clear Procedures: 11/21/17: Right-sided pigtail catheter chest tube insertion by radiology Assessment and Plan - Assessment and Plan Plan: NEUROLOGY Anxiety, controlled -Ativan as needed for anxiety and severe agitation -We will start Xanax 0.25 mg every 6 hours as needed for anxiety -Continue monitor neurological status PULMONOLOGY Acute hypoxic respiratory failure, resolved Large right-sided pleural effusion, postoperative Postoperative pneumonia Postoperative atelectasis -Continue to wean O2 supplementation maintain O2 sats greater than 92% -Status post pigtail catheter chest tube placement, continue monitor output, -We will get chest x-ray and if lung continues to stay expanded, will decrease suction to 20 cm -Pleural fluid indicating exudative at this time. -Duo nebs with easy Pap -Follow-up CT after chest tube placement shows decrease in size right pleural effusion. The improvement of the right lung atelectasis. Bilateral consolidation and small left effusion remain. -Incentive spirometry -Scraper Burrer consulted for continued management CARDIOLOGY Hypertension -Home medications have been continued -Continue monitor blood pressure to keep map greater than 65 -Echocardiogram indicates ejection fraction 65-70% with hyperdynamic left systolic function. Mild tricuspid valve regurgitation GASTROENTEROLOGY Hyperbilirubinemia, improving -Diabetic diet -Pepcid for GI protection -Patient still with elevated bilirubin status post cholecystectomy -Continue monitor liver enzymes -CT of the abdomen and pelvis shows the placement of the right tube. There is mild ascites with mild anasarca and abnormal hazy stranding of the omentum. Mild gastric distention and bladder distention RENAL -Continue monitor renal function -Monitor electrolytes and replete as needed -Discontinue IV fluids -We will give Lasix 40 mg IV 1 INFECTIOUS DISEASE Postoperative pneumonia Leukocytosis Lactic acidosis -Patient is on vancomycin and Zosyn -Blood cultures are negative for 3 days -Awaiting sputum culture -Pleural fluid culture no growth for 24 hours, fungal and AFB cultures are pending -Urinalysis did not indicate any signs of infection HEMATOLOGY -Continue monitor hemoglobin and transfuse if hemoglobin below 8.0 ENDOCRINOLOGY Diabetes -Diabetic diet -Accu-Cheks with sliding scale insulin PROPHYLAXIS DVT prevention: Sequential compression devices GI protection: Patient is on Pepcid twice daily LINES CODE STATUS Full code Follow-up level 3 Patient clinically stable at this time. Discussed with hospitalist who will assume care tomorrow morning. Consult has been requested Code Status: Full code Discussed Condition With: Addendum: Patient seen and examined. On room air currently. Negligible drainage from pigtail catheter today. If no significant output tomorrow will probably discontinue pigtail catheter. Discussed findings, assessment and plan with FRANCISCA Fernandez. Agree with above note. Consult and transfer to hospitalist service for further medical management. Patient being followed by Dr. Stack from pulmonary medicine.
--- NOTE | 2017-11-22 16:32 | XR ---
EXAM DATE: 11/22/2017 3:45 PM EDT AGE/SEX: 52 years / Female INDICATIONS: Right pleural effusion. CLINICAL DATA: This is the patient's subsequent encounter. Patient reports that signs and symptoms h ave been present for 2 days and indicates a pain score of 0/10. MEDICAL/SURGICAL HISTORY: . Hypercholesterolemia. Hypertension. Diabetes mellitus type II. Form er smoker . Cholecystectomy. Breast augmentation. COMPARISON: . FINDINGS: Small-caliber right chest tube present. Stable basilar airspace disease and small residual right effu sally. No pneumothorax. CONCLUSION: Stable small caliber right chest tube with right effusion and bilateral airspace disease. Electronically signed by: Timi Singleton MD 11/22/2017 4:30 PM EDT
[2017-11-22] MEDS ORDERED: oxyCODONE/Acetaminophen 10/325 Tablet PO PRN (16:58)
--- NOTE | 2017-11-22 22:42 | US ---
EXAM DATE: 11/21/2017 1:38 PM EDT AGE/SEX: 52 years / Female INDICATIONS: Right pleural effusion. CLINICAL DATA: This is the patient's initial encounter. Patient reports that signs and symptoms have been present for 1 day and indicates a pain score of 5/10. MEDICAL/SURGICAL HISTORY: Hypertension. Diabetes. Hyperlipidemia. Cholecystectomy. Breast aug mentation. COMPARISON: [facility], CT CHEST W/O CONTRAST, 11/21/2017. . DEVICE: 10 Sudanese . nonlocking pigtail FLUID: Total volume of 800cc cc of clear, red fluid was removed. Fluid was sent to lab for ordered studies. . . TECHNIQUE: 1. Ultrasound guidance for thoracentesis. 2. Thoracentesis with chest tube placement. The risks, benefits, and alternatives to ultrasound guided thoracentesis were explained to the patien t in detail, including the risk of bleeding and infection and pneumothorax with chest tube insertion. Writ ten and verbal informed consent was obtained. Appropriate area for right thoracentesis was marked under ultrasound guidance with the patient in the upright position. Overlying skin was prepped and draped in the usual sterile fashion and with local anestheti c, a dermatotomy was made with an 11 blade scalpel. The prescribed catheter was advanced into the pleural space. This was attached to the skin and connected to a Pleuovac. The patient tolerated the procedure well and left the ultrasound suite in stable condition. Chest radiograph is to be obtained. FINDINGS: Approximately 800 cc of dark serosanguineous fluid was removed immediately following catheter placeme nt. CONCLUSION: 1. Uncomplicated ultrasound-guided right chest tube placement for symptomatic large right pleural ef fusion. Electronically signed by: Arash Ram MD 11/22/2017 4:33 PM EDT
[2017-11-23 04:32] LABS: Hematocrit 33.1 % (35.0-46.0); Hemoglobin 10.8 gm/dL (11.6-15.3); Mean Corpuscular HGB Conc 32.7 % (32.0-36.0); Mean Corpuscular Hemoglobin 29.8 pg (27.0-34.0); Mean Platelet Volume 7.3 fL (7.0-11.0); Platelet Count 399 th/mm3 (150-450); Red Blood Count 3.64 mil/mm3 (4.00-5.30); Red Cell Distribution Width 11.5 % (11.6-17.2); White Blood Count 17.5 th/mm3 (4.0-11.0)
[2017-11-23 04:39] LABS: Chloride 99 meq/L (98-107); Potassium 3.5 meq/L (3.5-5.1); Sodium 132 meq/L (136-145)
[2017-11-23 04:42] LABS: Calcium 7.9 mg/dL (8.5-10.1)
[2017-11-23 04:43] LABS: Albumin 1.7 g/dL (3.4-5.0); Anion Gap 9 meq/L (5-15); Blood Urea Nitrogen 14 mg/dL (7-18); Carbon Dioxide 24.1 meq/L (21.0-32.0); Glucose,Random 227 mg/dL (74-106)
[2017-11-23 04:46] LABS: Alanine Aminotransferase 19 U/L (10-53); Aspartate Aminotransferase 13 U/L (15-37); Glomerular Filtration Rate 75 mL/min (>89)
[2017-11-23 04:49] LABS: Alkaline Phosphatase 177 U/L (45-117)
[2017-11-23 04:55] LABS: Lymphocytes 2 % (9-44); Monocytes 3 % (0-8)
[2017-11-23] MEDS: Piperacil/Tazo 4.5 GM Premix 4.5 GM/100 ML BAG IV.SIG SCH ×4 (05:45→23:20)
[2017-11-23] MEDS: Chlorhexidine Gluconate 2% 1 Pack (2 Cloths) TOPICAL SCH (06:32)
[2017-11-23] MEDS: Vancomycin Inj 1,250 MG in Sodium Chlor 0.9% Inj 250 ML IV.SIG SCH ×2 (06:32→20:14)
--- NOTE | 2017-11-23 06:47 | XR ---
EXAM DATE: 11/23/2017 6:19 AM EDT AGE/SEX: 52 years / Female INDICATIONS: Shortness of breath. CLINICAL DATA: This is the patient's subsequent encounter. Patient reports that signs and symptoms h ave been present for 3 days and indicates a pain score of Nonresponsive. MEDICAL/SURGICAL HISTORY: Hypertension. Diabetes mellitus type II. Breast augmentation. COMPARISON: [facility], CT CHEST W/O CONTRAST, 11/21/2017. . FINDINGS: Stable right-sided chest tube with continued improved aeration of the right lung. Persistent mild ple ural parenchymal opacities in the right lower lung zone. Mild left lower lung zone airspace disease. Cardiac base on contours are within normal limits. Bony thorax is intact. CONCLUSION: 1. Stable right-sided chest tube with continued improved aeration of the right lung. 2. Persistent right-sided small pleural effusion and airspace disease likely reflecting compressive atelectasis. 3. Persistent left lower lung zone airspace disease, likely atelectasis. Electronically signed by: Arash Ram MD 11/23/2017 6:45 AM EDT
--- NOTE | 2017-11-23 08:45 | P.PN ---
Subjective Interval history: This is a 52-year-old female transferred back to medical service from critical care management. Patient underwent chest tube placement with significant improvement of her right effusion. Patient resting comfortably on room air at this time. Chest tube has not had any output overnight. Discussed with critical care physician Dr. Ojeda, who said that could possibly pull the chest tube later this afternoon. Patient vital signs are stable, patient remains afebrile. Physical Exam Vital signs: Vital Signs 11/22/17 09:00 11/22/17 09:45 11/22/17 10:00 Temperature Pulse Rate 98 H 96 H 94 H Respiratory Rate 39 H 36 H 28 H Blood Pressure 109/70 109/69 Pulse Oximetry 91 L 93 L 93 L 11/22/17 11:00 11/22/17 12:00 11/22/17 13:00 Temperature 98.5 F Pulse Rate 90 98 H 104 H Respiratory Rate 23 44 H 43 H Blood Pressure 120/66 114/69 116/67 Pulse Oximetry 93 L 93 L 95 11/22/17 14:00 11/22/17 14:32 11/22/17 15:00 Temperature Pulse Rate 104 H 104 H 108 H Respiratory Rate 36 H 20 41 H Blood Pressure 104/67 115/68 Pulse Oximetry 94 L 91 L 11/22/17 16:00 11/22/17 17:00 11/22/17 18:00 Temperature 99.1 F Pulse Rate 108 H 108 H 104 H Respiratory Rate 39 H 29 H 38 H Blood Pressure 101/69 106/69 114/69 Pulse Oximetry 94 L 93 L 94 L 11/22/17 19:00 11/22/17 19:21 11/22/17 19:22 Temperature 98.4 F Pulse Rate 102 H 103 H Respiratory Rate 28 H 18 Blood Pressure 111/72 Pulse Oximetry 92 L 94 L 11/22/17 20:00 11/22/17 21:00 11/22/17 22:00 Temperature Pulse Rate 106 H 106 H 100 H Respiratory Rate 33 H 36 H 25 H Blood Pressure 104/63 102/65 110/66 Pulse Oximetry 91 L 89 L 91 L 11/22/17 23:00 11/23/17 00:00 11/23/17 01:00 Temperature Pulse Rate 104 H 100 H 104 H Respiratory Rate 27 H 26 H 29 H Blood Pressure 100/63 104/61 105/67 Pulse Oximetry 90 L 90 L 91 L 11/23/17 02:00 11/23/17 03:00 11/23/17 04:00 Temperature Pulse Rate 104 H 98 H 106 H Respiratory Rate 29 H 23 30 H Blood Pressure 108/69 105/67 111/69 Pulse Oximetry 91 L 92 L 91 L 11/23/17 05:00 11/23/17 06:00 11/23/17 07:54 Temperature Pulse Rate 98 H 114 H 96 H Respiratory Rate 25 H 43 H 28 H Blood Pressure 107/67 103/73 Pulse Oximetry 91 L 87 L Intake & Output 11/22/17 11/23/17 11/23/17 18:59 06:59 18:59 Intake Total 462.5 / 462.5 820 / 820 Output Total 1050 / 1050 200 / 200 0 / 0 Balance -587.5 / -587.5 620 / 620 0 / 0 Weight 82.2 kg Intake: IV 462.5 / 462.5 100 / 100 Zosyn 4.5 GM Premix 4.5 gm In 200 / 200 100 / 100 100 ml @ 200 mls/hr IV.SIG Q6H CLAUDINE Rx#:[id number] Vancomycin Inj 1,250 MG In NS 262.5 / 262.5 Inj 250 ML @ 250 mls/hr IV.SIG Q12H CLAUDINE Rx#:[id number] Oral 720 / 720 Output: Urine 1050 / 1050 200 / 200 Chest Tube Drainage 0 / 0 #1 Right Upper Pleural 0 / 0 Other: # Incontinent Voids 2 Date of Last Bowel Movement 11/22/17 11/22/17 # Bowel Movements 1 Weight On Admission 81.5 kg Narrative: GENERAL: Well-developed, well-nourished, in no acute distress. alert and orientated HEENT: Head is normocephalic without any lesions or masses noted. Facial features are symmetric. Eyes: Extraocular muscles are intact. Conjunctivae were clear. NECK: Supple without any masses. Trachea midline no deviation. No JVD, CARDIAC: Regular rhythm, regular rate. S1/S2 are heard. No murmurs gallops or rubs. LUNGS: Air movement is now heard in the right upper lung. No wheeze, rhonchi or rales. No use of accessory muscles on inspiration or expiration. ABDOMEN: Soft, nontender. Nondistended. Bowel sounds heard in all 4 quadrants. No organomegaly or masses. Negative rebound, negative guarding EXTREMITIES: No edema, pulses are equal bilaterally. No cyanosis or clubbing NEUROLOGY: Mood and affect appear appropriate. Cranial nerves II through XII grossly intact. Moving all extremities, speech is clear Results - Labs CBC & Chem 7: 11/23/17 04:20 11/23/17 04:20 Laboratory Results - last 24 hr 11/22/17 11/22/17 11/22/17 11:53 16:34 21:15 CBC w Diff WBC RBC Hgb Hct MCV MCH MCHC RDW Plt Count MPV WBC Differential Seg Neuts % (Manual) Band Neuts % (Manual) Lymphocytes % (Manual) Monocytes % (Manual) Abs Neuts (Manual) Differential Comment Sodium Potassium Chloride Carbon Dioxide Anion Gap BUN Creatinine Estimated GFR POC Glucose 240 H 266 H 242 H Random Glucose Calcium Total Bilirubin AST ALT Alkaline Phosphatase Total Protein Albumin 11/23/17 11/23/17 11/23/17 04:20 04:20 08:11 CBC w Diff Slide review pending WBC 17.5 H RBC 3.64 L Hgb 10.8 L Hct 33.1 L MCV 91.0 MCH 29.8 MCHC 32.7 RDW 11.5 L Plt Count 399 MPV 7.3 WBC Differential Manual diff final Seg Neuts % (Manual) 94 H Band Neuts % (Manual) 1 Lymphocytes % (Manual) 2 L Monocytes % (Manual) 3 Abs Neuts (Manual) 16.6 H Differential Comment . Sodium 132 L Potassium 3.5 Chloride 99 Carbon Dioxide 24.1 Anion Gap 9 BUN 14 Creatinine 0.80 Estimated GFR 75 L POC Glucose 235 H Random Glucose 227 H Calcium 7.9 L Total Bilirubin 2.0 H AST 13 L ALT 19 Alkaline Phosphatase 177 H Total Protein 6.0 L D Albumin 1.7 L Microbiology 11/21/17 13:05 Fluid - Pleural fluid Gram Stain - Final 11/21/17 13:05 Fluid - Pleural fluid Body Fluid Culture - Preliminary No growth in 24 hours 11/21/17 13:05 Other Fungal Smear - Final No fungal elements seen - Imaging Impressions Abdomen/Pelvis CT 11/21/17 00:00 CONCLUSION: 1. Placement of right chest tube with decrease in size of right pleural effusion. 2. Mild ascites with mild anasarca and abnormal hazy stranding of the omentum. 3. Mild gastric distention and bladder distention. 4. No bowel obstruction or free air. Chest CT 11/21/17 00:00 CONCLUSION: 1. Placement of right chest tube with decrease in size of right pleural effusion compared with exam from earlier today. There is improvement in right lung atelectasis. Bilateral consolidation and small left effusion remain. Chest Tube Insertion 11/21/17 00:00 CONCLUSION: 1. Uncomplicated ultrasound-guided right chest tube placement for symptomatic large right pleural effusion. Chest X-Ray 11/21/17 13:02 CONCLUSION: Right-sided drainage catheter right pleural space. No pneumothorax. Chest X-Ray 11/22/17 14:54 CONCLUSION: Stable small caliber right chest tube with right effusion and bilateral airspace disease. Chest X-Ray 11/23/17 06:00 CONCLUSION: 1. Stable right-sided chest tube with continued improved aeration of the right lung. 2. Persistent right-sided small pleural effusion and airspace disease likely reflecting compressive atelectasis. 3. Persistent left lower lung zone airspace disease, likely atelectasis. - Procedures 11/21/17: Chest tube insertion by radiology 11/23/17: Chest tube removal ECHOCARDIOGRAM CONCLUSIONS Trace mitral valve regurgitation. There is mild tricuspid valve regurgitation. The estimated pulmonary arterial pressure is 45 mmHg. The left ventricular systolic function is hyperdynamic with an estimated ejection fraction in the range of 65- 70%. Normal left ventricular size. Wall thickness is measured at the upper limits of normal. No regional wall motion abnormalities are present. Assessment and Plan - Assessment (1) Sepsis Code(s): A41.9 - Sepsis, unspecified organism Status: Acute Plan: -Continues to meet criteria with leukocytosis, sinus tachycardia, right lower lung consolidation by CT -Patient has been started on empirical antibiotics include vancomycin, Zosyn, Levaquin -Blood cultures are negative for 3 days -Await sputum culture (2) Pleural effusion Code(s): J90 - Pleural effusion, not elsewhere classified Status: Acute Plan: -Status post pigtail chest tube placement by interventional radiology -Patient has not had any output over the last 48 hours -Clamped chest tube today and possibly remove later this afternoon -Discussed with food cooking machine operator who indicated that since there has been no output yesterday and today we can pull the chest tube today -Fluid studies indicating exudative fluid at this time. -Continue to follow cultures (3) Acute respiratory failure with hypoxia Code(s): J96.01 - Acute respiratory failure with hypoxia Status: Resolved Plan: -Secondary to acute right-sided pleural effusion occupying complete right lung/ atelectasis/dense lung consolidation -Patient has been weaned down and is off oxygen this time with good O2 saturations status post chest tube placement -Staple Fiber Washer following the patient (4) Postoperative pneumonia Code(s): J95.89 - Other postprocedural complications and disorders of respiratory system, not elsewhere classified; J18.9 - Pneumonia, unspecified organism Status: Acute Plan: -Patient has been started on treatment for healthcare associated pneumonia -Continue vancomycin and Zosyn -Anticipate discharge on p.o. Levaquin, Flagyl -Weaned off O2 to maintain O2 sats greater than 92% -Emphasized the need for incentive spirometry -Duo nebs scheduled with ez Pap (5) Lactic acidosis Code(s): E87.2 - Acidosis Status: Resolved Plan: -Likely secondary to acute respiratory failure, resolved at this time (6) Leukocytosis Code(s): D72.829 - Elevated white blood cell count, unspecified Status: Acute Plan: -Continues to worsen with left shift -Continue monitor CBC (7) Diabetes Code(s): E11.9 - Type 2 diabetes mellitus without complications Status: Chronic Plan: -Accu-Cheks with sliding scale insulin (8) Hypertension Code(s): I10 - Essential (primary) hypertension Status: Chronic Plan: -Home medications have been continued (9) Hyperbilirubinemia Code(s): E80.6 - Other disorders of bilirubin metabolism Status: Acute Plan: -Likely to recent cholecystectomy -Bilirubin continues to improve on daily basis. - Plan DVT prevention -Sequential compression devices
[2017-11-23] MEDS: Insulin NovoLOG Aspart Correctional Sugar Inj SQ SCH ×4 (09:43→21:27)
[2017-11-23] MEDS: Famotidine 20 MG Tablet PO SCH ×2 (09:44→21:23)
[2017-11-23] MEDS: Enoxaparin Inj 40 MG/0.4 ML Syringe SQ SCH (09:44)
[2017-11-23] MEDS: Lisinopril 10 MG Tablet PO SCH (09:44)
[2017-11-23] MEDS: Senna/Docusate Sodium 8.6/50 MG Tablet PO SCH ×2 (09:44→21:23)
--- NOTE | 2017-11-23 15:11 | XR ---
EXAM DATE: 11/23/2017 3:08 PM EDT AGE/SEX: 52 years / Female INDICATIONS: Chest tube clamped. CLINICAL DATA: This is the patient's subsequent encounter. Patient reports that signs and symptoms h ave been present for 3 days and indicates a pain score of 0/10. MEDICAL/SURGICAL HISTORY: . Hypercholesterolemia. Hypertension. Diabetes mellitus type II. Form er smoker Chest tube, right. Cholecystectomy. Breast augmentation. COMPARISON: [facility], CHEST 1V SINGLE AP, 11/23/2017. . FINDINGS: The cardiac silhouette is enlarged in transverse diameter. Moderate size bilateral pleural effusions are present right greater than left. A right chest tube is in place. There is no evidence of pneumoth orax. CONCLUSION: There is no evidence of pneumothorax. Electronically signed by: Olegario Young MD 11/23/2017 3:10 PM EDT
--- NOTE | 2017-11-23 16:55 | P.DIET ---
Nutritional Evaluation Type of nutrition evaluation: initial Nutrition screening: Poor PO Intake Subjective Subjective Comments: PO intake today 100% for breakfast and 75% for lunch Objective - Diagnosis Postoperative Pneumonia w/Hypoxia - Objective % IBW: 138 Body Weight Used for Calculations: Actual Energy Needs - Lower Range (kCal/kg): 28 Energy Needs - Upper Range (kCal/kg): 33 Lower Limit kCal/kg (kCals): 1,655 Upper Limit kCal/kg (kCals): 1,950 Lower Limit Protein Factor (Grams per Kg): 1.1 Upper Limit Protein Factor (Grams per Kg): 1.4 Lower Protein Needs (Protein): 65 Upper Protein Needs (Protein): 83 Dietitian Reviewed in Medical Record: Current diet, Curent medications, Intake & Output, Labs, Medical history Diet Order: 1800ADA Oral Diet Intake Amount: Fair 50-75% Objective Comments: PMH: HTN, hyperlipidemia, DM-2 Accucheck 240, 266, 242 Meds Include: Novolog SSI Assessment Assessment: Pt is at nutritional risk r/t diagnosis and poor po intake. PO Intake improved over last 48-hr 75% to 100% for meals. Assess need for an oral nutritional supplement as appropriate. Labs reviewed. Dietitian will follow. Recommendations: 1.Assess need for an oral nutritional supplement as appropriate 2.Dietitian will follow Dietitian to Monitor: Lab values, Glucose level, Intake & Output, Weight change , PO Intake
[2017-11-23] MEDS ORDERED: VANCOMYCIN TROUGH OTHER ONE (17:45)
[2017-11-24 05:00] LABS: Baso % (Auto) 0.2 % (0.0-2.0); Eos # (Auto) 0.4 th/mm3 (0.0-0.4); Eos % (Auto) 3.2 % (0.0-4.0); Hematocrit 29.8 % (35.0-46.0); Hemoglobin 9.7 gm/dL (11.6-15.3); Lymph # (Auto) 0.7 th/mm3 (1.0-4.8); Lymph % (Auto) 5.4 % (9.0-44.0); Mean Corpuscular HGB Conc 32.6 % (32.0-36.0); Mean Corpuscular Hemoglobin 29.7 pg (27.0-34.0); Mean Corpuscular Volume 91.1 fL (80.0-100.0); Mean Platelet Volume 7.4 fL (7.0-11.0); Mono # (Auto) 0.9 th/mm3 (0.0-0.9); Neut # (Auto) 11.1 th/mm3 (1.8-7.7); Neut % (Auto) 84.2 % (16.0-70.0); Platelet Count 370 th/mm3 (150-450); Red Blood Count 3.28 mil/mm3 (4.00-5.30); Red Cell Distribution Width 11.4 % (11.6-17.2); White Blood Count 13.1 th/mm3 (4.0-11.0)
[2017-11-24] MEDS: Chlorhexidine Gluconate 2% 1 Pack (2 Cloths) TOPICAL SCH (05:07)
[2017-11-24 05:08] LABS: Potassium 3.2 meq/L (3.5-5.1)
[2017-11-24 05:11] LABS: Calcium 8.1 mg/dL (8.5-10.1)
[2017-11-24] MEDS: Piperacil/Tazo 4.5 GM Premix 4.5 GM/100 ML BAG IV.SIG SCH (05:11)
[2017-11-24] MEDS: Vancomycin Inj 1,250 MG in Sodium Chlor 0.9% Inj 250 ML IV.SIG SCH (05:11)
[2017-11-24] MEDS ORDERED: VANCOMYCIN TROUGH OTHER ONE (05:45)
--- NOTE | 2017-11-24 06:29 | XR ---
EXAM DATE: 11/24/2017 6:17 AM EDT AGE/SEX: 52 years / Female INDICATIONS: Shortness of breath. CLINICAL DATA: This is the patient's subsequent encounter. Patient reports that signs and symptoms h ave been present for 4 - 6 days and indicates a pain score of Nonresponsive. MEDICAL/SURGICAL HISTORY: Hypertension. Diabetes mellitus type II. Breast augmentation. Chest tube, right. COMPARISON: [facility], CHEST 1V SINGLE AP, 11/23/2017. . FINDINGS: Right-sided chest tube has been removed in the interval. No pneumothorax. Small residual right-sided effusion with associated airspace disease. Mild airspace disease at the left lung base. Cardiomegaly mediastinal contours are within normal limits. Bony thorax is intact. CONCLUSION: 1. Interval removal of the right chest tube without pneumothorax. 2. Stable small right pleural effusion and associated right lower lobe airspace disease. 3. Stable mild airspace disease in the left lower lung zone. Electronically signed by: Arash Ram MD 11/24/2017 6:28 AM EDT
[2017-11-24] MEDS: Insulin NovoLOG Aspart Correctional Sugar Inj SQ SCH ×4 (07:58→21:22)
[2017-11-24] MEDS: Enoxaparin Inj 40 MG/0.4 ML Syringe SQ SCH (08:01)
[2017-11-24] MEDS: Famotidine 20 MG Tablet PO SCH ×2 (08:02→21:21)
[2017-11-24] MEDS: Senna/Docusate Sodium 8.6/50 MG Tablet PO SCH ×2 (08:02→21:21)
--- NOTE | 2017-11-24 08:07 | P.DS ---
Date of admission: 11/20/17 03:45 Primary care physician: UNKNOWN Brief History from admission: 52-year-old female with known history of hypertension, hyperlipidemia, diabetes who recently underwent same-day surgery for cholecystectomy at [facility] on November 12, 2016. Ever since discharge the patient states that he has been experiencing shortness of breath and difficulty breathing progressively got worse where she could barely walk without getting significantly short of breath. Patient denies any fever, chills. She has had cough which has been nonproductive. Patient denies any significant abdominal pain, nausea, vomiting , chest pain, diarrhea, constipation, dark colored stools. Patient had workup done emergency department and found to have criteria for sepsis with leukocytosis, tachycardia, CT indicating right lower lung consolidations. DS: Diagnosis - Discharge Diagnosis (1) Sepsis Status: Acute (2) Postoperative pneumonia Status: Acute (3) Leukocytosis Status: Acute (4) Diabetes Status: Chronic (5) Hypertension Status: Chronic (6) Hyperlipidemia Status: Chronic (7) Acute respiratory failure with hypoxia Status: Resolved (8) Pleural effusion Status: Acute (9) Lactic acidosis Status: Resolved (10) Hyperbilirubinemia Status: Acute DS: Summary Hospital Course: This is a 52-year-old female patient who presented with leukocytosis, sinus tachycardia, right lower lung consolidation seen by CT, met sepsis criteria. Patient was started on empirical antibiotics including vancomycin, Zosyn and Levaquin. Blood cultures were drawn and negative to date. Patient was found to have a pleural effusion, status post pigtail chest tube placement by interventional radiology. Caster Operator saw patient during hospitalization. Chest tube was pulled on 11/23. On day of discharge patient was sitting up in bed reading comfortably no apparent distress. No shortness of breath. She did have acute respiratory failure with hypoxia secondary to acute right sided pleural effusion occupying complete right lung, atelectasis, dense lung consolidation. Patient has been weaned down and was off oxygen with good saturations. Patient did have postoperative pneumonia, was started on treatment for healthcare associated pneumonia. Was given vancomycin and Zosyn. Will discharge on p.o. Levaquin and Flagyl. Emphasized the need for incentive spirometer. Patient was given duo nebs as well as EZ Pap during hospitalization. Patient was found to have lactic acidosis and leukocytosis as well, which has resolved now. Patient has history of diabetes, this was managed during hospitalization as well as hypertension. Patient is also had a recent cholecystectomy, hyperbilirubinemia was seen in his. Patient has been stabilized for discharge, patient will be encouraged follow-up with PCP. - Time Spent with Patient Total time spent providing and/or coordinating discharge services: Greater than 30 minutes - Quality: AMI Clinical Trial Participant: No - Quality: VTE Deep Vein Thrombosis/Pulmonary Embolism Present on Admission: No Exam Vital signs: Vital Signs 11/23/17 08:00 11/23/17 08:27 11/23/17 09:03 Temperature Pulse Rate 107 H 104 H Respiratory Rate 29 H 49 H Blood Pressure 113/77 Pulse Oximetry 98 95 11/23/17 11:55 11/23/17 12:00 11/23/17 13:48 Temperature 98.0 F 98.0 F Pulse Rate 108 H Respiratory Rate 28 H Blood Pressure Pulse Oximetry 11/23/17 16:56 11/23/17 17:00 11/23/17 19:55 Temperature 98.8 F 98.8 F Pulse Rate 99 H 100 H Respiratory Rate 20 18 Blood Pressure 119/73 Pulse Oximetry 92 L 11/23/17 20:00 11/23/17 22:19 11/24/17 00:00 Temperature 98.8 F 97.7 F Pulse Rate 103 H 106 H 95 H Respiratory Rate 20 20 Blood Pressure 120/80 120/69 Pulse Oximetry 92 L 92 L 11/24/17 01:20 11/24/17 06:07 Temperature 98.1 F Pulse Rate 93 H 93 H Respiratory Rate 20 Blood Pressure 121/77 Pulse Oximetry 93 L Intake & Output 11/23/17 11/24/17 11/24/17 18:59 06:59 18:59 Intake Total 362.5 / 362.5 200 / 200 1265 / 1265 Output Total 0 / 0 Balance 362.5 / 362.5 200 / 200 1265 / 1265 Weight 81.8 kg Intake: IV 362.5 / 362.5 200 / 200 1265 / 1265 Zosyn 4.5 GM Premix 4.5 gm In 100 / 100 200 / 200 100 ml @ 200 mls/hr IV.SIG Q6H CLAUDINE Rx#:[id number] Vancomycin Inj 1,250 MG In NS 262.5 / 262.5 265 / 265 Inj 250 ML @ 250 mls/hr IV.SIG Q12H CLAUDINE Rx#:[id number] Output: Chest Tube Drainage 0 / 0 #1 Right Upper Pleural 0 / 0 Other: # Voids 1 1 Date of Last Bowel Movement 11/23/17 11/23/17 # Bowel Movements 1 - Constitutional no acute distress - Routine HEENT Exam Head: Present: normocephalic Eye: Present: EOMI, PERRL ENT: Present: mucous membranes moist - Routine Neck Exam Present: supple - Routine Cardiovascular Exam Present: RRR - Routine Abdominal Exam Present: soft - Routine Skin Exam Present: intact - Routine Neurological Exam Present: alert, oriented X3 Results Procedures completed during hospitalization: 11/21/17: Chest tube insertion by radiology 11/23/17: Chest tube removal ECHOCARDIOGRAM CONCLUSIONS Trace mitral valve regurgitation. There is mild tricuspid valve regurgitation. The estimated pulmonary arterial pressure is 45 mmHg. The left ventricular systolic function is hyperdynamic with an estimated ejection fraction in the range of 65- 70%. Normal left ventricular size. Wall thickness is measured at the upper limits of normal. No regional wall motion abnormalities are present. Labs on day of discharge: Labs from last 24 hours 11/24/17 11/24/17 11/24/17 07:29 04:28 04:28 CBC w Diff Auto diff final WBC 13.1 H RBC 3.28 L Hgb 9.7 L Hct 29.8 L MCV 91.1 MCH 29.7 MCHC 32.6 RDW 11.4 L Plt Count 370 MPV 7.4 Neut % (Auto) 84.2 H Lymph % (Auto) 5.4 L Woods % (Auto) 7.0 Eos % (Auto) 3.2 Baso % (Auto) 0.2 Neut # (Auto) 11.1 H Lymph # (Auto) 0.7 L Woods # (Auto) 0.9 Eos # (Auto) 0.4 Baso # (Auto) 0.0 WBC Differential . Differential Comment . Sodium Potassium Chloride Carbon Dioxide Anion Gap BUN Creatinine Estimated GFR POC Glucose 215 H Random Glucose Calcium Vancomycin Trough Pending 11/24/17 11/23/17 11/23/17 04:28 21:25 16:10 CBC w Diff WBC RBC Hgb Hct MCV MCH MCHC RDW Plt Count MPV Neut % (Auto) Lymph % (Auto) Woods % (Auto) Eos % (Auto) Baso % (Auto) Neut # (Auto) Lymph # (Auto) Woods # (Auto) Eos # (Auto) Baso # (Auto) WBC Differential Differential Comment Sodium 136 Potassium 3.2 L Chloride 102 Carbon Dioxide 25.0 Anion Gap 9 BUN 12 Creatinine 0.73 Estimated GFR 83 L POC Glucose 227 H 226 H Random Glucose 180 H Calcium 8.1 L Vancomycin Trough 11/23/17 11/23/17 11:52 08:11 CBC w Diff WBC RBC Hgb Hct MCV MCH MCHC RDW Plt Count MPV Neut % (Auto) Lymph % (Auto) Woods % (Auto) Eos % (Auto) Baso % (Auto) Neut # (Auto) Lymph # (Auto) Woods # (Auto) Eos # (Auto) Baso # (Auto) WBC Differential Differential Comment Sodium Potassium Chloride Carbon Dioxide Anion Gap BUN Creatinine Estimated GFR POC Glucose 254 H 235 H Random Glucose Calcium Vancomycin Trough Preliminary micro results at discharge 11/21/17 13:05 Body Fluid Culture - Preliminary Fluid - Pleural fluid No growth in 48 hours - Impressions ITS Impressions Abdomen/Pelvis CT 11/21/17 00:00 CONCLUSION: 1. Placement of right chest tube with decrease in size of right pleural effusion. 2. Mild ascites with mild anasarca and abnormal hazy stranding of the omentum. 3. Mild gastric distention and bladder distention. 4. No bowel obstruction or free air. Chest Tube Insertion 11/21/17 00:00 CONCLUSION: 1. Uncomplicated ultrasound-guided right chest tube placement for symptomatic large right pleural effusion. Chest CT 11/21/17 09:09 CONCLUSION: 1. Large right and small left pleural effusion. 2. Extensive consolidation throughout the right lung likely atelectasis with similar changes in the left lung base. Chest X-Ray 11/24/17 06:00 CONCLUSION: 1. Interval removal of the right chest tube without pneumothorax. 2. Stable small right pleural effusion and associated right lower lobe airspace disease. 3. Stable mild airspace disease in the left lower lung zone. Discharge Plan - Discharge Disposition Patient Disposition: /Home Health Service - Discharge Condition Condition: Good - Discharge Order Discharge Orders: Discharge Order (Routine); Ordered 11/24/17 Ordered By: Liza Justin - Discharge Details Anticipated Discharge Date: 11/24/17 - Physicians Team Primary Care Provider: UNKNOWN, Attending Provider: Yaritza Paiz Other Providers: Johnnie Trevino MD ; Hossein Stack MD ; Yaritza Paiz MD - Rxs /Orders / Referrals /Forms Prescriptions: New levofloxacin [Levaquin] 750 mg Tablet 750 mg PO DAILY 7 Days Qty: 7 RF: 0 metronidazole [Flagyl] 500 mg Tablet 500 mg PO TID 7 Days Qty: 21 RF: 0 Continue lisinopril 10 mg Tablet 10 mg PO DAILY metformin 500 mg Tablet 500 mg PO BID Referrals: Hossein Stack MD [Physician] - 11/30/17 UNKNOWN, [Primary Care Provider] - 11/30/17
--- NOTE | 2017-11-24 08:08 | P.DCO ---
- Home Health Nursing Order: Medical education, Signs/symptoms of disease process, Medication education-adverse effect, Nursing assessment with vital signs - Certification I have seen patient Lizbeth Gandhi on 11/24/17. My clinical findings support the need for the requested home health care services because: Patient has SOB I certify that my clinical findings support that this patient is homebound because: Post-op weakness
[2017-11-24] MEDS: Lisinopril 10 MG Tablet PO SCH (08:29)
--- NOTE | 2017-11-24 09:04 | P.PNIM ---
Subjective Interval history: Follow up sepsis, pleural effusion, pneumonia. Patient seen and examined, sitting up in bed comfortably. Dr. Stack in to see patient today, will keep overnight and repeat chest x-ray in am. Change to PO ABX. Continue to monitor. Physical Exam Vital signs: Vital Signs 11/23/17 09:03 11/23/17 11:55 11/23/17 12:00 Temperature 98.0 F 98.0 F Pulse Rate 104 H Respiratory Rate 49 H Blood Pressure Pulse Oximetry 11/23/17 13:48 11/23/17 16:56 11/23/17 17:00 Temperature 98.8 F 98.8 F Pulse Rate 108 H 99 H Respiratory Rate 28 H 20 Blood Pressure 119/73 Pulse Oximetry 11/23/17 19:55 11/23/17 20:00 11/23/17 22:19 Temperature 98.8 F Pulse Rate 100 H 103 H 106 H Respiratory Rate 18 20 Blood Pressure 120/80 Pulse Oximetry 92 L 92 L 11/24/17 00:00 11/24/17 01:20 11/24/17 06:07 Temperature 97.7 F 98.1 F Pulse Rate 95 H 93 H 93 H Respiratory Rate 20 20 Blood Pressure 120/69 121/77 Pulse Oximetry 92 L 93 L 11/24/17 08:44 Temperature Pulse Rate Respiratory Rate Blood Pressure Pulse Oximetry 98 Intake & Output 11/23/17 11/24/17 11/24/17 18:59 06:59 18:59 Intake Total 362.5 / 362.5 200 / 200 1265 / 1265 Output Total 0 / 0 Balance 362.5 / 362.5 200 / 200 1265 / 1265 Weight 81.8 kg Intake: IV 362.5 / 362.5 200 / 200 1265 / 1265 Zosyn 4.5 GM Premix 4.5 gm In 100 / 100 200 / 200 100 ml @ 200 mls/hr IV.SIG Q6H CLAUDINE Rx#:[id number] Vancomycin Inj 1,250 MG In NS 262.5 / 262.5 265 / 265 Inj 250 ML @ 250 mls/hr IV.SIG Q12H CLAUDINE Rx#:[id number] Output: Chest Tube Drainage 0 / 0 #1 Right Upper Pleural 0 / 0 Other: # Voids 1 1 Date of Last Bowel Movement 11/23/17 11/23/17 # Bowel Movements 1 Narrative: GENERAL: Well-developed, well-nourished, in no acute distress. alert and orientated HEENT: Head is normocephalic without any lesions or masses noted. Facial features are symmetric. Eyes: Extraocular muscles are intact. Conjunctivae were clear. NECK: Supple without any masses. Trachea midline no deviation. No JVD, CARDIAC: Regular rhythm, regular rate. S1/S2 are heard. No murmurs gallops or rubs. LUNGS: Air movement is now heard in the right upper lung. No wheeze, rhonchi or rales. No use of accessory muscles on inspiration or expiration. ABDOMEN: Soft, nontender. Nondistended. Bowel sounds heard in all 4 quadrants. No organomegaly or masses. Negative rebound, negative guarding EXTREMITIES: No edema, pulses are equal bilaterally. No cyanosis or clubbing NEUROLOGY: Mood and affect appear appropriate. Cranial nerves II through XII grossly intact. Moving all extremities, speech is clear - Constitutional no acute distress - Routine HEENT Exam Head: Present: normocephalic Eye: Present: EOMI, PERRL ENT: Present: mucous membranes moist - Routine Neck Exam Present: supple - Routine Cardiovascular Exam Present: RRR - Routine Abdominal Exam Present: soft - Routine Skin Exam Present: intact - Routine Neurological Exam Present: alert, oriented X3 Results - Labs CBC & Chem 7: 11/24/17 04:28 11/24/17 04:28 Laboratory Results - last 24 hr 11/23/17 11/23/17 11/23/17 11:52 16:10 21:25 CBC w Diff WBC RBC Hgb Hct MCV MCH MCHC RDW Plt Count MPV Neut % (Auto) Lymph % (Auto) [place] % (Auto) Eos % (Auto) Baso % (Auto) Neut # (Auto) Lymph # (Auto) [place] # (Auto) Eos # (Auto) Baso # (Auto) WBC Differential Differential Comment Sodium Potassium Chloride Carbon Dioxide Anion Gap BUN Creatinine Estimated GFR POC Glucose 254 H 226 H 227 H Random Glucose Calcium 11/24/17 11/24/17 11/24/17 04:28 04:28 07:29 CBC w Diff Auto diff final WBC 13.1 H RBC 3.28 L Hgb 9.7 L Hct 29.8 L MCV 91.1 MCH 29.7 MCHC 32.6 RDW 11.4 L Plt Count 370 MPV 7.4 Neut % (Auto) 84.2 H Lymph % (Auto) 5.4 L [place] % (Auto) 7.0 Eos % (Auto) 3.2 Baso % (Auto) 0.2 Neut # (Auto) 11.1 H Lymph # (Auto) 0.7 L [place] # (Auto) 0.9 Eos # (Auto) 0.4 Baso # (Auto) 0.0 WBC Differential . Differential Comment . Sodium 136 Potassium 3.2 L Chloride 102 Carbon Dioxide 25.0 Anion Gap 9 BUN 12 Creatinine 0.73 Estimated GFR 83 L POC Glucose 215 H Random Glucose 180 H Calcium 8.1 L Microbiology 11/21/17 13:05 Fluid - Pleural fluid Gram Stain - Final 11/21/17 13:05 Fluid - Pleural fluid Body Fluid Culture - Preliminary No growth in 48 hours - Imaging Impressions Chest X-Ray 11/23/17 00:00 CONCLUSION: There is no evidence of pneumothorax. Chest X-Ray 11/24/17 06:00 CONCLUSION: 1. Interval removal of the right chest tube without pneumothorax. 2. Stable small right pleural effusion and associated right lower lobe airspace disease. 3. Stable mild airspace disease in the left lower lung zone. - Procedures 11/21/17: Chest tube insertion by radiology 11/23/17: Chest tube removal ECHOCARDIOGRAM CONCLUSIONS Trace mitral valve regurgitation. There is mild tricuspid valve regurgitation. The estimated pulmonary arterial pressure is 45 mmHg. The left ventricular systolic function is hyperdynamic with an estimated ejection fraction in the range of 65- 70%. Normal left ventricular size. Wall thickness is measured at the upper limits of normal. No regional wall motion abnormalities are present. Assessment and Plan - Assessment (1) Sepsis Code(s): A41.9 - Sepsis, unspecified organism Status: Acute Plan: -Met criteria with leukocytosis, sinus tachycardia, right lower lung consolidation by CT. -Patient has been started on empirical antibiotics include vancomycin, Zosyn, Levaquin. Changed to Augmentin. -Blood cultures are negative for 3 days. - Pulmonology following, repeat CXR in am. (2) Postoperative pneumonia Code(s): J95.89 - Other postprocedural complications and disorders of respiratory system, not elsewhere classified; J18.9 - Pneumonia, unspecified organism Status: Acute Plan: -Patient has been started on treatment for healthcare associated pneumonia -Was on vancomycin and Zosyn. Changed to Augmentin. -Weaned off O2 to maintain O2 sats greater than 92%. On RA. Passed walk test. -Emphasized the need for incentive spirometry. -[place] scheduled with eduar Harden. (3) Pleural effusion Code(s): J90 - Pleural effusion, not elsewhere classified Status: Acute Plan: -Status post pigtail chest tube placement by interventional radiology. -Patient has not had any output over the last 48 hours. -Chest tube removed yesterday 11/23. -Fluid studies indicating exudative fluid at this time. -Continue to follow cultures. (4) Hypertension Code(s): I10 - Essential (primary) hypertension Status: Chronic Plan: -Home medications have been continued (5) Hyperlipidemia Code(s): E78.5 - Hyperlipidemia, unspecified Status: Chronic (6) Acute respiratory failure with hypoxia Code(s): J96.01 - Acute respiratory failure with hypoxia Status: Resolved Plan: -Secondary to acute right-sided pleural effusion occupying complete right lung/ atelectasis/dense lung consolidation -Patient has been weaned down and is off oxygen this time with good O2 saturations status post chest tube placement. Passed walk test. -Inventory Control Coordinator following the patient. (7) Lactic acidosis Code(s): E87.2 - Acidosis Status: Resolved Plan: -Likely secondary to acute respiratory failure, resolved at this time (8) Hyperbilirubinemia Code(s): E80.6 - Other disorders of bilirubin metabolism Status: Acute Plan: -Likely to recent cholecystectomy -Bilirubin continues to improve on daily basis. (9) Leukocytosis Code(s): D72.829 - Elevated white blood cell count, unspecified Status: Acute Plan: -Improving. -Continue monitor CBC (10) Diabetes Code(s): E11.9 - Type 2 diabetes mellitus without complications Status: Chronic Plan: -Accu-Cheks with sliding scale insulin - Plan Awaiting clinical improvement. Possible DC tomorrow depending on CXR and pulm recs. Progress Note: Quality - AMI Clinical Trial Participant: No
[2017-11-24] MEDS: Amoxicillin/Clavulanate 875/125 MG Tablet PO SCH ×2 (09:17→21:21)
[2017-11-25] MEDS: Chlorhexidine Gluconate 2% 1 Pack (2 Cloths) TOPICAL SCH (05:16)
--- NOTE | 2017-11-25 07:50 | P.PNIM ---
Subjective Interval history: Follow-up sepsis and pneumonia. Patient is much improved today. Breathing well with no shortness of breath. Will discharge home with Augmentin and orders follow-up with PCP and obtain x-ray in 1 week. Patient is stable at this time and agreeable to plan. Physical Exam Vital signs: Vital Signs 11/24/17 08:44 11/24/17 09:07 11/24/17 10:00 Temperature 96.5 F L Pulse Rate 98 H 100 H Respiratory Rate 20 17 Blood Pressure 123/70 Pulse Oximetry 98 94 L Pulse Oximetry [Exertion on Room Air] 95 Pulse Oximetry [Resting on Room Air] 97 11/24/17 13:57 11/24/17 18:00 11/24/17 20:00 Temperature 97.3 F L 99.5 F 97.2 F L Pulse Rate 102 H 101 H 99 H Respiratory Rate 16 16 20 Blood Pressure 111/69 125/74 126/89 Pulse Oximetry 96 92 L 94 L Pulse Oximetry [Exertion on Room Air] Pulse Oximetry [Resting on Room Air] 11/24/17 20:10 11/25/17 00:00 11/25/17 07:38 Temperature 97.3 F L Pulse Rate 90 Respiratory Rate 20 Blood Pressure 117/83 Pulse Oximetry 93 L 92 L 97 Pulse Oximetry [Exertion on Room Air] Pulse Oximetry [Resting on Room Air] Intake & Output 11/24/17 11/25/17 11/25/17 18:59 06:59 18:59 Intake Total 1505 / 1505 480 / 480 Balance 1505 / 1505 480 / 480 Weight 86.3 kg Intake: IV 1265 / 1265 Vancomycin Inj 1,250 MG In NS 265 / 265 Inj 250 ML @ 250 mls/hr IV.SIG Q12H CLAUDINE Rx#:[id number] Oral 240 / 240 480 / 480 Other: # Voids 2 4 Date of Last Bowel Movement 11/23/17 11/23/17 # Bowel Movements 0 Narrative: GENERAL: Well-developed, well-nourished, in no acute distress. alert and orientated HEENT: Head is normocephalic without any lesions or masses noted. Facial features are symmetric. Eyes: Extraocular muscles are intact. Conjunctivae were clear. NECK: Supple without any masses. Trachea midline no deviation. No JVD, CARDIAC: Regular rhythm, regular rate. S1/S2 are heard. No murmurs gallops or rubs. LUNGS: Air movement is now heard in the right upper lung. No wheeze, rhonchi or rales. No use of accessory muscles on inspiration or expiration. ABDOMEN: Soft, nontender. Nondistended. Bowel sounds heard in all 4 quadrants. No organomegaly or masses. Negative rebound, negative guarding EXTREMITIES: No edema, pulses are equal bilaterally. No cyanosis or clubbing NEUROLOGY: Mood and affect appear appropriate. Cranial nerves II through XII grossly intact. Moving all extremities, speech is clear Results - Labs CBC & Chem 7: 11/24/17 04:28 11/24/17 04:28 Laboratory Results - last 24 hr 11/24/17 11/24/17 11/24/17 04:28 11:12 16:17 POC Glucose 221 H 200 H Vancomycin Trough 13.1 H 11/24/17 11/25/17 21:16 07:40 POC Glucose 226 H 214 H Vancomycin Trough Microbiology 11/21/17 13:05 Fluid - Pleural fluid Gram Stain - Final 11/21/17 13:05 Fluid - Pleural fluid Body Fluid Culture - Final No growth in 72 hours (aerobically and anaerobically ) - Procedures 11/21/17: Chest tube insertion by radiology 11/23/17: Chest tube removal ECHOCARDIOGRAM CONCLUSIONS Trace mitral valve regurgitation. There is mild tricuspid valve regurgitation. The estimated pulmonary arterial pressure is 45 mmHg. The left ventricular systolic function is hyperdynamic with an estimated ejection fraction in the range of 65- 70%. Normal left ventricular size. Wall thickness is measured at the upper limits of normal. No regional wall motion abnormalities are present. Assessment and Plan - Assessment (1) Sepsis Code(s): A41.9 - Sepsis, unspecified organism Status: Acute Plan: -Met criteria with leukocytosis, sinus tachycardia, right lower lung consolidation by CT. -Patient has been started on empirical antibiotics include vancomycin, Zosyn, Levaquin. Changed to Augmentin. -Blood cultures are negative. - Pulmonology following, x-ray reviewed today. (2) Postoperative pneumonia Code(s): J95.89 - Other postprocedural complications and disorders of respiratory system, not elsewhere classified; J18.9 - Pneumonia, unspecified organism Status: Acute Plan: -Patient has been started on treatment for healthcare associated pneumonia -Was on vancomycin and Zosyn. Changed to Augmentin. -Weaned off O2 to maintain O2 sats greater than 92%. On RA. Passed walk test. -Emphasized the need for incentive spirometry. -Promise fairchild scheduled with eduar Harden. (3) Pleural effusion Code(s): J90 - Pleural effusion, not elsewhere classified Status: Acute Plan: -Status post pigtail chest tube placement by interventional radiology. -Patient has not had any output over the last 48 hours. -Chest tube removed 11/23. -Fluid studies indicating exudative fluid at this time. (4) Hypertension Code(s): I10 - Essential (primary) hypertension Status: Chronic Plan: -Home medications have been continued (5) Hyperlipidemia Code(s): E78.5 - Hyperlipidemia, unspecified Status: Chronic (6) Acute respiratory failure with hypoxia Code(s): J96.01 - Acute respiratory failure with hypoxia Status: Resolved Plan: -Secondary to acute right-sided pleural effusion occupying complete right lung/ atelectasis/dense lung consolidation -Patient has been weaned down and is off oxygen this time with good O2 saturations status post chest tube placement. Passed walk test. -Concrete Pump Operator following the patient. (7) Lactic acidosis Code(s): E87.2 - Acidosis Status: Resolved Plan: -Likely secondary to acute respiratory failure, resolved at this time (8) Hyperbilirubinemia Code(s): E80.6 - Other disorders of bilirubin metabolism Status: Acute Plan: -Likely to recent cholecystectomy -Bilirubin continues to improve on daily basis. (9) Leukocytosis Code(s): D72.829 - Elevated white blood cell count, unspecified Status: Acute Plan: -Improved. (10) Diabetes Code(s): E11.9 - Type 2 diabetes mellitus without complications Status: Chronic Plan: -Accu-Cheks with sliding scale insulin - Plan DC home today. Progress Note: Quality - AMI Clinical Trial Participant: No
--- NOTE | 2017-11-25 08:05 | XR ---
EXAM DATE: 11/25/2017 7:56 AM EDT AGE/SEX: 52 years / Female INDICATIONS: Short of breath. CLINICAL DATA: This is the patient's subsequent encounter. Patient reports that signs and symptoms h ave been present for 1 week and indicates a pain score of 0/10. MEDICAL/SURGICAL HISTORY: . Hypercholesterolemia. Hypertension. Diabetes mellitus type II. Form er smoker. Chest tube, right. . Cholecystectomy. Breast augmentation. COMPARISON: [facility], CHEST 1V SINGLE AP, 11/24/2017. . FINDINGS: PA and lateral views of the chest demonstrate bibasilar consolidations more pronounced within the rig ht. Small bilateral pleural effusions right larger than left. The appearance of the chest is stable f rom the prior exam. No pneumothorax. Heart is normal in size. Bony structures are unremarkable. CONCLUSION: Unchanged small bilateral pleural effusions and bibasilar consolidations affecting the right to a greater degree than the left. Electronically signed by: Koko Montez MD 11/25/2017 8:03 AM EDT
[2017-11-25] MEDS: Amoxicillin/Clavulanate 875/125 MG Tablet PO SCH (08:41)
[2017-11-25] MEDS: Lisinopril 10 MG Tablet PO SCH (08:41)
[2017-11-25] MEDS: Senna/Docusate Sodium 8.6/50 MG Tablet PO SCH (08:42)
[2017-11-25] MEDS: Famotidine 20 MG Tablet PO SCH (08:42)
[2017-11-25] MEDS: Enoxaparin Inj 40 MG/0.4 ML Syringe SQ SCH (08:43)
[2017-11-25] MEDS: Insulin NovoLOG Aspart Correctional Sugar Inj SQ SCH (08:43)
== END 2017-11-25 12:35 | disposition home health service (06) ==
LOC: NEDDLT 14:45 → PH3 11-20 03:45 → PHICU 11-21 07:47 → PH3 11-23 17:00
PROVIDERS: ADMIT Internal Medicine; ATTEND Internal Medicine